=== PATIENT | female | born 1930 | race Caucasian/White ===

== ENCOUNTER 2016-04-08 09:34 | Outpatient (CLI) | payer MEDICARE, OTHER | END 2016-04-08 09:35 | disposition home or self-care (01) | DX: I10 Essential (primary) hypertension (principal); Z79.899 Other long term (current) drug therapy; N28.9 Disorder of kidney and ureter, unspecified; R73.01 Impaired fasting glucose; R53.83 Other fatigue; I48.91 Unspecified atrial fibrillation ==

== ENCOUNTER 2016-09-01 09:55 | Outpatient (CLI) | payer MEDICARE, OTHER ==
[2016-09-01 18:43] LABS: BILIRUBIN,URINE NEGATIVE (NEGATIVE)
[2016-09-01 19:04] LABS: BASOPHILS % (AUTO) 0.5 %; EOSINOPHILS # (AUTO) 0.1 10^3/uL (0.0-0.7); EOSINOPHILS % (AUTO) 0.9 %; HCT - HEMATOCRIT 38.6 % (37.0-47.0); HGB - HEMOGLOBIN 12.5 g/dL (12.0-16.0); LYMPHOCYTES # (AUTO) 2.2 10^3/uL (1.5-3.5); LYMPHOCYTES % (AUTO) 28.6 %; MEAN CORPUSCULAR HEMOGLOBIN 27.5 pg (27.0-31.0); MEAN CORPUSCULAR HGB CONC 32.4 g/dL (32.0-36.0); MEAN PLATELET VOLUME 9.3 fL (7.9-10.8); MONOCYTES # (AUTO) 0.6 10^3/uL (0.0-1.0); MONOCYTES % (AUTO) 7.9 %; NEUTROPHILS # (AUTO) 4.8 10^3/uL (1.5-6.6); NEUTROPHILS % (AUTO) 62.1 %; RED BLOOD COUNT 4.55 10^6/uL (4.20-5.40); RED CELL DISTRIBUTION WIDTH 15.6 % (12.0-15.0); UNCORRECTED WHITE BLOOD COUNT 7.8 x10^3/uL; WHITE BLOOD COUNT 7.8 x10^3/uL (4.8-10.8)
[2016-09-01 19:13] LABS: ALBUMIN/GLOBULIN RATIO 1.3 (1.0-2.2); BILIRUBIN,TOTAL 0.5 mg/dL (0.2-1.0); CALCIUM 9.7 mg/dL (8.5-10.3); CREATININE 1.1 mg/dL (0.4-1.0); POTASSIUM 4.6 mmol/L (3.5-5.0); TOTAL PROTEIN 7.3 g/dL (6.7-8.2)
[2016-09-01 19:35] LABS: UR CULTURE IF IND INDICATED
[2016-09-01 20:00] LABS: HEMOGLOBIN A1C 0.49 g/dL
== END 2016-09-01 09:56 | disposition home or self-care (01) ==
LOC: LAB.F 09:55
PROVIDERS: ATTEND Physician Assistant Medical
DX: Z79.899 Other long term (current) drug therapy (principal); N28.9 Disorder of kidney and ureter, unspecified; R73.01 Impaired fasting glucose
CPT/HCPCS: 36415; 80053; 81001; 83036; 85025; 87086

== ENCOUNTER 2016-09-10 10:21 | Outpatient (CLI) | payer MEDICARE, OTHER ==
--- NOTE | 2016-09-10 12:24 | XRAY Report ---
THREE-VIEW RIGHT KNEE: 09/10/2016 CLINICAL INDICATION: Pain. FINDINGS: AP, lateral, sunrise views of the right knee demonstrate moderate osteoarthritis. No effu ashlee is present. There is no evidence of acute fracture. IMPRESSION: MODERATE OSTEOARTHRITIS. JOB #: [id number] EXT JOB #:[id number]
== END 2016-09-10 10:22 | disposition home or self-care (01) ==
LOC: DI 10:21
PROVIDERS: ATTEND Physician Assistant Medical
DX: M17.11 Unilateral primary osteoarthritis, right knee (principal)

== ENCOUNTER 2016-11-25 13:28 | Outpatient (CLI) | payer MEDICARE, OTHER ==
--- NOTE | 2016-11-26 16:45 | Mammography Report ---
DIGITAL SCREENING MAMMOGRAM: 11/25/2016 CLINICAL INDICATION: An 86-year-old with family history of breast cancer, history of benign left armond st biopsy, for screening. COMPARISON: 10/2015, 09/2014, 08/2013, 06/2012, 05/2011, 04/2010, 04/2009. TECHNIQUE: Routine CC and MLO projections were obtained of the breasts. FINDINGS: The breasts demonstrate scattered fibroglandular densities bilaterally. Coarse and punctat e, typically benign calcifications are present. No suspicious masses, clustered microcalcifications, or regions of architectural distortion are identified. IMPRESSION: BENIGN FINDINGS. RECOMMENDATION: ROUTINE ANNUAL SCREENING UNLESS OTHERWISE CLINICALLY INDICATED. BIRADS CATEGORY 2-BENIGN FINDINGS. STANDARD QUALIFYING STATEMENTS 1. This examination was reviewed with the aid of Computer-Aided Detection (CAD). 2. A negative or benign imaging report should not delay biopsy if clinically suspicious findings are present. Consider surgical consultation if warranted. More than 5% of cancers are not identified by i maging. 3. Dense breasts may obscure an underlying neoplasm. JOB #: [id number] EXT JOB #:[id number]
== END 2016-11-25 13:29 | disposition home or self-care (01) ==
LOC: DI 13:28
PROVIDERS: ATTEND Physician Assistant Medical
DX: Z12.31 Encounter for screening mammogram for malignant neoplasm of breast (principal); Z80.3 Family history of malignant neoplasm of breast
CPT/HCPCS: 77067

== ENCOUNTER 2017-02-02 11:13 | Outpatient (CLI) | payer MEDICARE, OTHER ==
[2017-02-02 18:36] LABS: BASOPHILS % (AUTO) 0.4 %; EOSINOPHILS # (AUTO) 0.1 10^3/uL (0.0-0.7); EOSINOPHILS % (AUTO) 1.6 %; HCT - HEMATOCRIT 36.1 % (37.0-47.0); HGB - HEMOGLOBIN 11.6 g/dL (12.0-16.0); LYMPHOCYTES # (AUTO) 2.3 10^3/uL (1.5-3.5); LYMPHOCYTES % (AUTO) 30.8 %; MEAN CORPUSCULAR HEMOGLOBIN 27.5 pg (27.0-31.0); MEAN CORPUSCULAR HGB CONC 32.3 g/dL (32.0-36.0); MEAN CORPUSCULAR VOLUME 85.2 fL (81.0-99.0); MEAN PLATELET VOLUME 10.2 fL (7.9-10.8); MONOCYTES # (AUTO) 0.6 10^3/uL (0.0-1.0); MONOCYTES % (AUTO) 7.9 %; NEUTROPHILS # (AUTO) 4.4 10^3/uL (1.5-6.6); NEUTROPHILS % (AUTO) 59.3 %; RED BLOOD COUNT 4.24 10^6/uL (4.20-5.40); RED CELL DISTRIBUTION WIDTH 15.6 % (12.0-15.0); UNCORRECTED WHITE BLOOD COUNT 7.5 x10^3/uL; WHITE BLOOD COUNT 7.5 x10^3/uL (4.8-10.8)
[2017-02-02 18:53] LABS: HEMOGLOBIN A1C 0.46 g/dL
[2017-02-02 19:00] LABS: ALBUMIN/GLOBULIN RATIO 1.3 (1.0-2.2); BILIRUBIN,TOTAL 0.6 mg/dL (0.2-1.0); BUN - BLOOD UREA NITROGEN 30 mg/dL (6-20); CALCIUM 9.6 mg/dL (8.5-10.3); CARBON DIOXIDE - CO2 24 mmol/L (21-32); CHLORIDE 105 mmol/L (101-111); CHOL/HDL RATIO 2.7 (<4.4); CHOLESTEROL 162 mg/dL; CREATININE 1.1 mg/dL (0.4-1.0); GFR - MDRD 47 (>89); GLUCOSE 86 mg/dL (70-100); HDL CHOLESTEROL 61 mg/dL; LDL/HDL RATIO 1.3 (<4.4); POTASSIUM 4.3 mmol/L (3.5-5.0); SODIUM 137 mmol/L (135-145); TOTAL PROTEIN 7.2 g/dL (6.7-8.2); TRIGLYCERIDES 118 mg/dL; VLDL CHOLESTEROL 24 mg/dL
== END 2017-02-02 11:14 | disposition home or self-care (01) ==
LOC: LAB.F 11:13
PROVIDERS: ATTEND Physician Assistant Medical
DX: E78.5 Hyperlipidemia, unspecified (principal); N28.9 Disorder of kidney and ureter, unspecified; Z79.01 Long term (current) use of anticoagulants; R73.01 Impaired fasting glucose; R53.83 Other fatigue
CPT/HCPCS: 36415; 80053; 80061; 83036; 84443; 85025

== ENCOUNTER 2017-06-03 09:08 | Outpatient (CLI) | payer MEDICARE, OTHER ==
[2017-06-03 17:40] LABS: BASOPHILS % (AUTO) 0.6 %; EOSINOPHILS # (AUTO) 0.1 10^3/uL (0.0-0.7); EOSINOPHILS % (AUTO) 2.1 %; HGB - HEMOGLOBIN 11.4 g/dL (12.0-16.0); LYMPHOCYTES # (AUTO) 2.1 10^3/uL (1.5-3.5); MEAN CORPUSCULAR HEMOGLOBIN 27.3 pg (27.0-31.0); MEAN CORPUSCULAR VOLUME 82.9 fL (81.0-99.0); MEAN PLATELET VOLUME 9.7 fL (7.9-10.8); MONOCYTES # (AUTO) 0.6 10^3/uL (0.0-1.0); MONOCYTES % (AUTO) 9.2 %; NEUTROPHILS # (AUTO) 3.3 10^3/uL (1.5-6.6); NEUTROPHILS % (AUTO) 54.1 %; PLT - PLATELET COUNT 178 10^3/uL (130-450); RED BLOOD COUNT 4.15 10^6/uL (4.20-5.40); RED CELL DISTRIBUTION WIDTH 15.8 % (12.0-15.0); WHITE BLOOD COUNT 6.2 x10^3/uL (4.8-10.8)
[2017-06-03 17:47] LABS: HB2 TOTAL 12.3 g/dL; HEMOGLOBIN A1C 0.49 g/dL; HEMOGLOBIN A1C % 5.8 % (4.6-6.2)
[2017-06-03 18:00] LABS: ALBUMIN/GLOBULIN RATIO 1.3 (1.0-2.2); BILIRUBIN,TOTAL 0.4 mg/dL (0.2-1.0); CALCIUM 9.3 mg/dL (8.5-10.3); TOTAL PROTEIN 7.1 g/dL (6.7-8.2)
== END 2017-06-03 09:09 | disposition home or self-care (01) ==
LOC: LAB.F 09:08
PROVIDERS: ATTEND Physician Assistant Medical
DX: N28.9 Disorder of kidney and ureter, unspecified (principal); R73.01 Impaired fasting glucose; D64.9 Anemia, unspecified; Z79.01 Long term (current) use of anticoagulants
CPT/HCPCS: 36415; 80053; 83036; 85025

== ENCOUNTER 2017-07-08 08:00 | Outpatient (CLI) | payer MEDICARE, OTHER | END 2017-07-08 23:59 | disposition home or self-care (01) | LOC: LAB.R 08:00 | PROVIDERS: ATTEND Nurse Practitioner Family | DX: D64.9 Anemia, unspecified (principal) | CPT/HCPCS: 82270 ==

== ENCOUNTER 2017-10-08 10:28 | Outpatient (CLI) | payer MEDICARE, OTHER ==
[2017-10-08 17:24] LABS: BASOPHILS % (AUTO) 0.6 %; EOSINOPHILS # (AUTO) 0.1 10^3/uL (0.0-0.7); EOSINOPHILS % (AUTO) 1.3 %; HGB - HEMOGLOBIN 11.9 g/dL (12.0-16.0); LYMPHOCYTES # (AUTO) 2.1 10^3/uL (1.5-3.5); LYMPHOCYTES % (AUTO) 33.6 %; MEAN CORPUSCULAR HEMOGLOBIN 27.8 pg (27.0-31.0); MEAN CORPUSCULAR HGB CONC 32.8 g/dL (32.0-36.0); MEAN CORPUSCULAR VOLUME 84.7 fL (81.0-99.0); MEAN PLATELET VOLUME 10.4 fL (7.9-10.8); MONOCYTES # (AUTO) 0.5 10^3/uL (0.0-1.0); MONOCYTES % (AUTO) 8.8 %; NEUTROPHILS # (AUTO) 3.4 10^3/uL (1.5-6.6); NEUTROPHILS % (AUTO) 55.7 %; PLT - PLATELET COUNT 178 10^3/uL (130-450); RED BLOOD COUNT 4.28 10^6/uL (4.20-5.40); RED CELL DISTRIBUTION WIDTH 16.5 % (12.0-15.0); WHITE BLOOD COUNT 6.2 x10^3/uL (4.8-10.8)
== END 2017-10-08 10:29 | disposition home or self-care (01) ==
LOC: LAB.F 10:28
PROVIDERS: ATTEND Nurse Practitioner Family
DX: D64.9 Anemia, unspecified (principal)
CPT/HCPCS: 36415; 85025

== ENCOUNTER 2017-10-20 10:05 | Outpatient (CLI) | payer MEDICARE, OTHER ==
[2017-10-20 18:11] LABS: ALBUMIN 3.9 g/dL (3.2-5.5); ALBUMIN/GLOBULIN RATIO 1.3 (1.0-2.2); BILIRUBIN,TOTAL 0.9 mg/dL (0.2-1.0); CALCIUM 9.5 mg/dL (8.5-10.3); CREATININE 1.1 mg/dL (0.4-1.0); TOTAL PROTEIN 6.8 g/dL (6.7-8.2)
== END 2017-10-20 10:06 | disposition home or self-care (01) ==
LOC: LAB.F 10:05
PROVIDERS: ATTEND Physician Assistant Medical
DX: I12.9 Hypertensive chronic kidney disease with stage 1 through stage 4 chronic kidney disease, or unspecified chronic kidney disease (principal); N18.9 Chronic kidney disease, unspecified
CPT/HCPCS: 36415; 80053

== ENCOUNTER 2018-01-14 08:34 | Outpatient (CLI) | payer MEDICARE, OTHER ==
[2018-01-14 12:15] LABS: ALBUMIN 4.3 g/dL (3.2-5.5); ALBUMIN/GLOBULIN RATIO 1.4 (1.0-2.2); BILIRUBIN,TOTAL 0.7 mg/dL (0.2-1.0); CALCIUM 9.7 mg/dL (8.5-10.3); CREATININE 1.1 mg/dL (0.4-1.0); TOTAL PROTEIN 7.3 g/dL (6.7-8.2)
== END 2018-01-14 08:35 | disposition home or self-care (01) ==
LOC: LAB.F 08:34
PROVIDERS: ATTEND Physician Assistant Medical
DX: I12.9 Hypertensive chronic kidney disease with stage 1 through stage 4 chronic kidney disease, or unspecified chronic kidney disease (principal); N18.9 Chronic kidney disease, unspecified
CPT/HCPCS: 36415; 80053

== ENCOUNTER 2018-06-02 09:46 | Outpatient (CLI) | payer MEDICARE, OTHER ==
[2018-06-02 18:05] LABS: ALBUMIN 4.2 g/dL (3.2-5.5); ALBUMIN/GLOBULIN RATIO 1.4 (1.0-2.2); BILIRUBIN,TOTAL 0.5 mg/dL (0.2-1.0); CALCIUM 9.6 mg/dL (8.5-10.3); CREATININE 1.1 mg/dL (0.4-1.0); TOTAL PROTEIN 7.2 g/dL (6.7-8.2)
== END 2018-06-02 09:47 | disposition home or self-care (01) ==
LOC: LAB.F 09:46
PROVIDERS: ATTEND Physician Assistant Medical
DX: I12.9 Hypertensive chronic kidney disease with stage 1 through stage 4 chronic kidney disease, or unspecified chronic kidney disease (principal); N18.9 Chronic kidney disease, unspecified
CPT/HCPCS: 36415; 80053

== ENCOUNTER 2019-01-04 09:41 | Outpatient (CLI) | payer MEDICARE, OTHER ==
[2019-01-04 17:23] LABS: BASOPHILS % (AUTO) 0.5 %; EOSINOPHILS # (AUTO) 0.1 10^3/uL (0.0-0.7); EOSINOPHILS % (AUTO) 1.6 %; HGB - HEMOGLOBIN 11.4 g/dL (12.0-16.0); LYMPHOCYTES # (AUTO) 2.1 10^3/uL (1.5-3.5); LYMPHOCYTES % (AUTO) 28.2 %; MEAN CORPUSCULAR HEMOGLOBIN 26.9 pg (27.0-31.0); MEAN CORPUSCULAR HGB CONC 30.2 g/dL (32.0-36.0); MEAN CORPUSCULAR VOLUME 88.9 fL (81.0-99.0); MEAN PLATELET VOLUME 12.9 fL (7.9-10.8); MONOCYTES # (AUTO) 0.7 10^3/uL (0.0-1.0); MONOCYTES % (AUTO) 8.8 %; NEUTROPHILS # (AUTO) 4.5 10^3/uL (1.5-6.6); NEUTROPHILS % (AUTO) 60.6 %; PLT - PLATELET COUNT 183 10^3/uL (130-450); RED BLOOD COUNT 4.24 10^6/uL (4.20-5.40); RED CELL DISTRIBUTION WIDTH 14.9 % (12.0-15.0); WHITE BLOOD COUNT 7.4 x10^3/uL (4.8-10.8)
[2019-01-04 17:53] LABS: HB2 TOTAL 11.5 g/dL; HEMOGLOBIN A1C 0.54 g/dL; HEMOGLOBIN A1C % 6.4 % (4.6-6.2)
[2019-01-04 17:58] LABS: ALBUMIN 4.1 g/dL (3.2-5.5); ALBUMIN/GLOBULIN RATIO 1.3 (1.0-2.2); ALKALINE PHOSPHATASE 69 IU/L (42-121); ALT ALANINE AMINOTRANSFERASE 16 IU/L (10-60); AST ASPARTATE AMINOTRANSFERASE 16 IU/L (10-42); BILIRUBIN,TOTAL 0.4 mg/dL (0.2-1.0); BUN - BLOOD UREA NITROGEN 26 mg/dL (6-20); CALCIUM 9.4 mg/dL (8.5-10.3); CARBON DIOXIDE - CO2 27 mmol/L (21-32); CHLORIDE 106 mmol/L (101-111); CHOL/HDL RATIO 2.4 (<4.4); CHOLESTEROL 168 mg/dL; CREATININE 1.1 mg/dL (0.4-1.0); GFR - MDRD 47 (>89); GLUCOSE 98 mg/dL (70-100); HDL CHOLESTEROL 69 mg/dL; LDL CHOLESTEROL,CALCULATED 81 mg/dL; LDL/HDL RATIO 1.2 (<4.4); SODIUM 142 mmol/L (135-145); TOTAL PROTEIN 7.3 g/dL (6.7-8.2); VLDL CHOLESTEROL 18 mg/dL
== END 2019-01-04 09:42 | disposition home or self-care (01) ==
LOC: LAB.S 09:41
PROVIDERS: ATTEND Physician Assistant Medical
DX: I12.9 Hypertensive chronic kidney disease with stage 1 through stage 4 chronic kidney disease, or unspecified chronic kidney disease (principal); N18.9 Chronic kidney disease, unspecified; E78.5 Hyperlipidemia, unspecified; R73.01 Impaired fasting glucose; D64.9 Anemia, unspecified
CPT/HCPCS: 36415; 80053; 80061; 83036; 83721; 85025

== ENCOUNTER 2019-03-08 11:21 | Outpatient (CLI) | payer MEDICARE, OTHER | END 2019-03-08 11:22 | disposition critical access hospital (66) | LOC: EMS 11:21 | PROVIDERS: ATTEND Surgery | DX: R42 Dizziness and giddiness (principal) | CPT/HCPCS: A0425; A0429 ==

== ENCOUNTER 2019-03-08 11:46 | Emergency (ER) | payer MEDICARE, OTHER ==
[2019-03-08 12:28] LABS: BASOPHILS # (AUTO) 0.1 10^3/uL (0.0-0.1); BASOPHILS % (AUTO) 0.7 %; EOSINOPHILS # (AUTO) 0.2 10^3/uL (0.0-0.7); EOSINOPHILS % (AUTO) 2.1 %; HGB - HEMOGLOBIN 11.7 g/dL (12.0-16.0); LYMPHOCYTES # (AUTO) 0.8 10^3/uL (1.5-3.5); LYMPHOCYTES % (AUTO) 11.1 %; MEAN CORPUSCULAR HEMOGLOBIN 27.4 pg (27.0-31.0); MEAN CORPUSCULAR HGB CONC 32.1 g/dL (32.0-36.0); MEAN CORPUSCULAR VOLUME 85.2 fL (81.0-99.0); MEAN PLATELET VOLUME 9.7 fL (7.9-10.8); MONOCYTES # (AUTO) 0.6 10^3/uL (0.0-1.0); MONOCYTES % (AUTO) 7.9 %; NEUTROPHILS # (AUTO) 5.9 10^3/uL (1.5-6.6); NEUTROPHILS % (AUTO) 77.7 %; PLT - PLATELET COUNT 170 10^3/uL (130-450); RED BLOOD COUNT 4.27 10^6/uL (4.20-5.40); RED CELL DISTRIBUTION WIDTH 14.7 % (12.0-15.0); WHITE BLOOD COUNT 7.6 x10^3/uL (4.8-10.8)
[2019-03-08 12:43] LABS: ALBUMIN 3.8 g/dL (3.2-5.5); ALBUMIN/GLOBULIN RATIO 1.2 (1.0-2.2); BILIRUBIN,TOTAL 0.5 mg/dL (0.2-1.0); CALCIUM 9.1 mg/dL (8.5-10.3); TOTAL PROTEIN 7.1 g/dL (6.7-8.2)
[2019-03-08 12:48] LABS: BILIRUBIN,URINE NEGATIVE (NEGATIVE); GLUCOSE, URINE (UA) NEGATIVE (NEGATIVE); KETONES,URINE (UA) TRACE mg/dL (NEGATIVE); LEUKOCYTE ESTERASE, URINE TRACE (NEGATIVE); NITRITE,URINE NEGATIVE (NEGATIVE); OCCULT BLOOD,URINE SMALL (NEGATIVE); PH,URINE 6.5 PH (5.0-7.5); PROTEIN,URINE NEGATIVE (NEGATIVE); UROBILINOGEN,URINE 0.2 (NORMAL) E.U./dL (NORMAL)
[2019-03-08] MEDS ORDERED: SODIUM CHLORIDE 0.9% 1,000 ML IV ONE (12:49)
--- NOTE | 2019-03-08 12:52 | ED Physician Documentation ---
PD HPI FOCAL NEURO - Stated complaint Stated Complaint: DIZZY - Chief complaint Chief Complaint: Neuro - History obtained from History obtained from: Patient - History of Present Illness Timing - onset: Other (88-year-old woman who has had laryngitis for last week. She saw her doctor and got put on Mucinex and a steroid nasal spray, continues to have that. Today she feels lightheaded when she changes position, especially when she goes upright. There is no associated chest pain, trouble breathing, pedal edema, calf pain, dark or tarry stools. She has a history of chronic A. fib and is on Xarelto and metoprolol for same. No recent medication changes.) Review of Systems Constitutional: denies: Fever, Chills, Myalgias Cardiac: denies: Chest pain / pressure, Palpitations Respiratory: denies: Dyspnea, Cough GI: denies: Hematemesis, Bloody / black stool : denies: Dysuria Skin: denies: Rash Musculoskeletal: denies: Neck pain PD PAST MEDICAL HISTORY - Present Medications Home Medications: Ambulatory Orders Medication Instructions Recorded Confirmed Cephalexin [Keflex] 500 mg PO Q6H #20 capsule 03/08/19 - Allergies Allergies/Adverse Reactions: Allergies Allergy/AdvReac Type Severity Reaction Status Date / Time No Known Drug Allergies Allergy Verified 03/08/19 12:01 PD ED PE NORMAL - Vitals Vital signs reviewed: Yes - General General: Alert and oriented X 3, No acute distress, Well developed/nourished - HEENT HEENT: Atraumatic, PERRL, EOMI, Moist mucous membranes - Neck Neck: Supple, no meningeal sign, No bony TTP, No adenopathy - Cardiac Cardiac: No murmur, Other (irreg irreg) - Respiratory Respiratory: No respiratory distress, Clear bilaterally - Abdomen Abdomen: Normal bowel sounds, Non tender - Female Female : Deferred - Rectal Rectal: Deferred Results - Vitals Vitals: Vital Signs - 24 hr 03/08/19 03/08/19 11:50 12:25 Temperature 35.9 C L Heart Rate 78 75 Respiratory 18 18 Rate Blood Pressure 108/69 128/63 O2 Saturation 100 97 Oxygen O2 Source Room air - EKG (time done) 1154 Rate: Rate (enter#) (73) Rhythm: Atrial fibrillation [place]: Normal QRS: Normal Ischemia: Normal ST segments Computer interpretation: Agree with computer - Labs Labs: Laboratory Tests 03/08/19 03/08/19 03/08/19 12:22 12:22 12:43 WBC 7.6 RBC 4.27 Hgb 11.7 L Hct 36.4 L MCV 85.2 MCH 27.4 MCHC 32.1 RDW 14.7 Plt Count 170 MPV 9.7 Neut # (Auto) 5.9 Lymph # (Auto) 0.8 L [place] # (Auto) 0.6 Eos # (Auto) 0.2 Baso # (Auto) 0.1 Absolute Nucleated RBC 0.00 Nucleated RBC % 0.0 Sodium 136 Potassium 4.1 Chloride 101 Carbon Dioxide 24 Anion Gap 11.0 BUN 24 H Creatinine 1.0 Estimated GFR (MDRD) 52 L Glucose 113 H Calcium 9.1 Total Bilirubin 0.5 AST 23 ALT 14 Alkaline Phosphatase 84 Total Protein 7.1 Albumin 3.8 Globulin 3.3 Albumin/Globulin Ratio 1.2 Lipase 42 Urine Color YELLOW Urine Clarity CLEAR Urine pH 6.5 Ur Specific [place] 1.015 Urine Protein NEGATIVE Urine Glucose (UA) NEGATIVE Urine Ketones TRACE Urine Occult Blood SMALL H Urine Nitrite NEGATIVE Urine Bilirubin NEGATIVE Urine Urobilinogen 0.2 (NORMAL) Ur Leukocyte Esterase TRACE H Urine RBC 0-5 Urine WBC 0-3 Ur Squamous Epith Cells RARE Squamous Urine Bacteria None Seen Ur Microscopic Review INDICATED Urine Culture Comments INDICATED PD MEDICAL DECISION MAKING - ED course ED course: This is a linda 88-year-old woman who presents with positional presyncope in the setting of what apparently is nonbacterial laryngitis. She was feeling much better after IV fluids. She is anemic, but no more anemic than normal. No evidence of bleeding. There is evidence of a mild urinary tract infection as well which is treated pending culture. Departure - Departure Disposition: Home, Self Care Clinical Impression: Orthostatic dizziness Urinary tract infection Qualifiers: Urinary tract infection type: acute cystitis Hematuria presence: without hematuria Qualified Code(s): N30.00 - Acute cystitis without hematuria Condition: Good Record reviewed to determine appropriate education?: Yes Instructions: ED UTI Cystitis Female, ED Dizziness UKO Prescriptions: Cephalexin [Keflex] 500 mg PO Q6H #20 capsule Comments: Call your doctor to arrange a follow-up appointment, make the next available appointment. In the interim, return anytime if worse or if new symptoms develop. We will culture your urine, the results should be done in 48-72 hours. If an antibiotic change is necessary we will call you. Return if worse in the meantime, especially if you develop increasing flank pain, fevers, or cannot keep down the medication.
[2019-03-08 13:03] LABS: CLARITY,URINE CLEAR (CLEAR)
[2019-03-08 13:10] LABS: BACTERIA,URINE None Seen /HPF (None Seen); RBC,URINE 0-5 /HPF (0-5); SQUAMOUS EPITHELIAL CELL,UR RARE Squamous (<= Few)
[2019-03-08] MEDS ORDERED: cephALEXin 250 MG CAPSULE PO STA (13:59)
[2019-03-08 14:12] VITALS: BP 141/78
== END 2019-03-08 14:47 | disposition home or self-care (01) ==
LOC: EDUNIT# → ED 11:46
DX: I95.1 Orthostatic hypotension (principal); R42 Dizziness and giddiness; N30.00 Acute cystitis without hematuria; J04.0 Acute laryngitis; D64.9 Anemia, unspecified; I48.20 Chronic atrial fibrillation, unspecified; Z79.01 Long term (current) use of anticoagulants
CPT/HCPCS: 36415; 80053; 81001; 83690; 85025; 87086; 93005; 96360; 99283; 99284; A9270; 81003

== ENCOUNTER 2019-03-14 12:46 | Emergency (ER) | payer MEDICARE, OTHER ==
[2019-03-14 13:29] LABS: BASOPHILS # (AUTO) 0.1 10^3/uL (0.0-0.1); BASOPHILS % (AUTO) 0.5 %; EOSINOPHILS # (AUTO) 0.1 10^3/uL (0.0-0.7); EOSINOPHILS % (AUTO) 0.8 %; HGB - HEMOGLOBIN 12.4 g/dL (12.0-16.0); LYMPHOCYTES # (AUTO) 1.5 10^3/uL (1.5-3.5); LYMPHOCYTES % (AUTO) 15.1 %; MEAN CORPUSCULAR HEMOGLOBIN 27.3 pg (27.0-31.0); MEAN CORPUSCULAR HGB CONC 31.8 g/dL (32.0-36.0); MEAN CORPUSCULAR VOLUME 85.7 fL (81.0-99.0); MEAN PLATELET VOLUME 9.4 fL (7.9-10.8); MONOCYTES # (AUTO) 0.8 10^3/uL (0.0-1.0); MONOCYTES % (AUTO) 8.1 %; NEUTROPHILS # (AUTO) 7.2 10^3/uL (1.5-6.6); NEUTROPHILS % (AUTO) 75.1 %; PLT - PLATELET COUNT 184 10^3/uL (130-450); RED BLOOD COUNT 4.55 10^6/uL (4.20-5.40); RED CELL DISTRIBUTION WIDTH 14.9 % (12.0-15.0); WHITE BLOOD COUNT 9.6 x10^3/uL (4.8-10.8)
[2019-03-14 13:46] LABS: ALBUMIN 4.1 g/dL (3.2-5.5); ALBUMIN/GLOBULIN RATIO 1.2 (1.0-2.2); BILIRUBIN,TOTAL 0.5 mg/dL (0.2-1.0); CALCIUM 9.5 mg/dL (8.5-10.3); CREATININE 1.1 mg/dL (0.4-1.0); MAGNESIUM 2.3 mg/dL (1.7-2.8); PHOSPHORUS 3.7 mg/dL (2.5-4.6); TOTAL PROTEIN 7.5 g/dL (6.7-8.2)
[2019-03-14] MEDS ORDERED: SODIUM CHLORIDE 0.9% 1,000 ML IV ONE (14:25)
--- NOTE | 2019-03-14 14:41 | ED Physician Documentation ---
History of Present Illness - Stated complaint Stated Complaint: WEAKNESS - Chief complaint Chief Complaint: General - History obtained from History obtained from: Patient - History of Present Illness Timing: How many weeks ago (3) Pain level max: 0 Pain level now: 0 - Additonal information Additional information: 88-year-old female states that she has been feeling weak for the past 3 weeks. Worse with movement and better with rest. No focal neurological deficits. No focal weakness, just an overall feeling of weakness. She states that she has also had laryngitis for the past few weeks. No fevers. No cough. No chest pain. No nausea or vomiting. No diarrhea Review of Systems Ten Systems: 10 systems reviewed and negative Constitutional: denies: Fever, Chills Eyes: denies: Decreased vision, Photophobia Ears: denies: Ear pain Nose: denies: Rhinorrhea / runny nose, Congestion Cardiac: denies: Chest pain / pressure Respiratory: denies: Cough GI: denies: Nausea, Vomiting, Diarrhea : denies: Dysuria Skin: denies: Rash Musculoskeletal: denies: Neck pain, Back pain, Extremity pain Neurologic: denies: Focal weakness, Numbness, Confused, Altered mental status, Headache PD PAST MEDICAL HISTORY - Past Medical History Past Medical History: Yes Cardiovascular: Hypertension, Atrial fibrillation - Present Medications Home Medications: Ambulatory Orders Medication Instructions Recorded Confirmed Cephalexin [Keflex] 500 mg PO Q6H #20 capsule 03/08/19 - Allergies Allergies/Adverse Reactions: Allergies Allergy/AdvReac Type Severity Reaction Status Date / Time No Known Drug Allergies Allergy Verified 03/14/19 12:54 - Living Situation Living Situation: reports: With family - Social History Does the pt smoke?: No Does the pt have substance abuse?: No - Family History Family history: reports: Non contributory PD ED PE NORMAL - Vitals Vital signs reviewed: Yes - General General: Alert and oriented X 3, No acute distress, Well developed/nourished - HEENT HEENT: PERRL, Ears normal, Moist mucous membranes, Pharynx benign - Neck Neck: Supple, no meningeal sign - Cardiac Cardiac: Strong equal pulses, Other (Irregular) - Respiratory Respiratory: No respiratory distress, Clear bilaterally - Abdomen Abdomen: Soft, Non tender, Non distended - Derm Derm: Warm and dry, No rash - Extremities Extremities: No edema - Neuro Neuro: Alert and oriented X 3, machine feeder floorperson 2-12 intact, No motor deficit, No sensory deficit, Normal speech Eye Opening: Spontaneous Motor: Obeys Commands Verbal: Oriented GCS Score: 15 - Psych Psych: Normal mood, Normal affect - Free text exam Free text exam: NIH stroke scale of 0. Normal gait. Results - Vitals Vitals: Vital Signs - 24 hr 03/14/19 03/14/19 03/14/19 12:54 14:48 17:26 Temperature 36.5 C Heart Rate 86 75 76 Respiratory 16 18 16 Rate Blood Pressure 114/65 134/65 H 134/80 H O2 Saturation 98 96 95 Oxygen O2 Source Room air - Labs Labs: Laboratory Tests 03/14/19 03/14/19 03/14/19 13:23 13:23 16:15 WBC 9.6 RBC 4.55 Hgb 12.4 Hct 39.0 MCV 85.7 MCH 27.3 MCHC 31.8 L RDW 14.9 Plt Count 184 MPV 9.4 Neut # (Auto) 7.2 H Lymph # (Auto) 1.5 [place] # (Auto) 0.8 Eos # (Auto) 0.1 Baso # (Auto) 0.1 Absolute Nucleated RBC 0.00 Nucleated RBC % 0.0 Sodium 137 Potassium 4.1 Chloride 102 Carbon Dioxide 24 Anion Gap 11.0 BUN 22 H Creatinine 1.1 H Estimated GFR (MDRD) 47 L Glucose 103 H Calcium 9.5 Phosphorus 3.7 Magnesium 2.3 Total Bilirubin 0.5 AST 28 ALT 19 Alkaline Phosphatase 91 Total Protein 7.5 Albumin 4.1 Globulin 3.4 Albumin/Globulin Ratio 1.2 Lipase 47 Urine Color YELLOW Urine Clarity CLEAR Urine pH 7.5 Ur Specific [place] 1.010 Urine Protein NEGATIVE Urine Glucose (UA) NEGATIVE Urine Ketones NEGATIVE Urine Occult Blood SMALL H Urine Nitrite NEGATIVE Urine Bilirubin NEGATIVE Urine Urobilinogen 0.2 (NORMAL) Ur Leukocyte Esterase NEGATIVE Urine RBC 6-10 H Urine WBC 0-3 Ur Squamous Epith Cells RARE Squamous Urine Bacteria None Seen Ur Microscopic Review INDICATED Urine Culture Comments NOT INDICATED PD MEDICAL DECISION MAKING - ED course Complexity details: reviewed old records, reviewed results, re-evaluated patient, considered differential, d/w patient ED course: Patient feels better after IV fluids. No significant lab abnormalities. We will have her follow-up with her doctor for further care. No evidence of stroke. No neurological deficits. Ambulating well here. Patient counseled regarding signs and symptoms for which I believe and urgent re-evaluation would be necessary. Patient with good understanding of and agreement to plan and is comfortable going home at this time This document was made in part using voice recognition software. While efforts are made to proofread this document, sound alike and grammatical errors may occur. Departure - Departure Disposition: 01 Home, Self Care Clinical Impression: Weakness Condition: Good Instructions: ED Weakness [facility]O Follow-Up: Shilpa Morales PA-C [Primary Care Provider] - Within 1 week Comments: The cause of your symptoms today is unclear. Follow-up with your doctor for further care. There are no significant laboratory abnormalities today.
[2019-03-14 16:42] LABS: BILIRUBIN,URINE NEGATIVE (NEGATIVE); GLUCOSE, URINE (UA) NEGATIVE (NEGATIVE); KETONES,URINE (UA) NEGATIVE (NEGATIVE); LEUKOCYTE ESTERASE, URINE NEGATIVE (NEGATIVE); NITRITE,URINE NEGATIVE (NEGATIVE); OCCULT BLOOD,URINE SMALL (NEGATIVE); PH,URINE 7.5 PH (5.0-7.5); PROTEIN,URINE NEGATIVE (NEGATIVE); UROBILINOGEN,URINE 0.2 (NORMAL) E.U./dL (NORMAL)
[2019-03-14 16:43] LABS: CLARITY,URINE CLEAR (CLEAR)
[2019-03-14 16:55] LABS: BACTERIA,URINE None Seen /HPF (None Seen); SQUAMOUS EPITHELIAL CELL,UR RARE Squamous (<= Few)
[2019-03-14 17:27] VITALS: BP 134/80
== END 2019-03-14 17:42 | disposition home or self-care (01) ==
LOC: ED 12:46
DX: R53.1 Weakness (principal); I10 Essential (primary) hypertension
CPT/HCPCS: 36415; 80053; 81001; 81003; 83690; 83735; 84100; 85025; 87086; 96360; 99284

== ENCOUNTER 2019-03-19 12:01 | Outpatient (CLI) | payer MEDICARE, OTHER ==
[2019-03-19 12:16] LABS: BASOPHILS # (AUTO) 0.1 10^3/uL (0.0-0.1); BASOPHILS % (AUTO) 0.5 %; EOSINOPHILS # (AUTO) 0.1 10^3/uL (0.0-0.7); EOSINOPHILS % (AUTO) 0.5 %; HGB - HEMOGLOBIN 11.7 g/dL (12.0-16.0); LYMPHOCYTES # (AUTO) 1.2 10^3/uL (1.5-3.5); LYMPHOCYTES % (AUTO) 9.7 %; MEAN CORPUSCULAR HEMOGLOBIN 27.5 pg (27.0-31.0); MEAN CORPUSCULAR HGB CONC 32.2 g/dL (32.0-36.0); MEAN CORPUSCULAR VOLUME 85.2 fL (81.0-99.0); MEAN PLATELET VOLUME 9.2 fL (7.9-10.8); NEUTROPHILS # (AUTO) 10.3 10^3/uL (1.5-6.6); NEUTROPHILS % (AUTO) 80.6 %; PLT - PLATELET COUNT 187 10^3/uL (130-450); RED BLOOD COUNT 4.26 10^6/uL (4.20-5.40); RED CELL DISTRIBUTION WIDTH 14.9 % (12.0-15.0); WHITE BLOOD COUNT 12.7 x10^3/uL (4.8-10.8)
[2019-03-19 12:28] LABS: ALBUMIN 3.9 g/dL (3.2-5.5); ALBUMIN/GLOBULIN RATIO 1.2 (1.0-2.2); BILIRUBIN,TOTAL 0.6 mg/dL (0.2-1.0); CALCIUM 9.3 mg/dL (8.5-10.3); CREATININE 1.5 mg/dL (0.4-1.0); TOTAL PROTEIN 7.1 g/dL (6.7-8.2)
== END 2019-03-19 12:02 | disposition home or self-care (01) ==
LOC: LAB 12:01
PROVIDERS: ATTEND Nurse Practitioner
DX: R53.83 Other fatigue (principal); I12.9 Hypertensive chronic kidney disease with stage 1 through stage 4 chronic kidney disease, or unspecified chronic kidney disease; Z79.01 Long term (current) use of anticoagulants; D64.9 Anemia, unspecified; N18.9 Chronic kidney disease, unspecified; J06.9 Acute upper respiratory infection, unspecified; N39.0 Urinary tract infection, site not specified
CPT/HCPCS: 36415; 80053; 85025; 87040

== ENCOUNTER 2019-03-25 19:52 | Outpatient (CLI) | payer MEDICARE, OTHER | END 2019-03-25 19:53 | disposition critical access hospital (66) | LOC: EMS 19:52 | PROVIDERS: ATTEND Surgery | DX: R53.1 Weakness (principal); R29.810 Facial weakness; R47.81 Slurred speech | CPT/HCPCS: A0425; A0429 ==

== ENCOUNTER 2019-03-25 20:10 | Inpatient (IN) | payer MEDICARE, OTHER ==
--- NOTE | 2019-03-25 20:18 | ED Physician Documentation ---
PD HPI FOCAL NEURO - Stated complaint Stated Complaint: CVA - History obtained from History obtained from: Patient, Family, EMS - History of Present Illness Timing - onset: Unknown (see below for approximations of timeframes) Timing - details: Abrupt onset Time of symptom onset unknown: Time of onset unknown (see below for approximations) Severity of deficit: Moderate Weakness: Face, Arm, Leg, Left Associated symptoms: Fall. No: Headache, Head injury, Chest pain Baseline status: positive: A&OX3, ambulatory, indep (Per son-in-law, has supporting rails and bars installed in house but otherwise ambulates and functions independently) Similar symptoms before: Has not had sx before Recently seen: Clinic (recently prescribed antibiotic for possible pneumonia) - Additional information Additional information: BIBA for left-sided weakness. last confident known normal was when son-in-law interacted with her approximately 2:30 PM today. he returned to her house 7 PM tonight and found her on the floor next to washing machine with left-sided weakness and slurred speech, and thus called 911. patient has difficulty providing timing of events; she says she fell to ground approximately 30 minutes [employer]HALATION [employer], although she describes a controlled descent to floor (due to weakness). she does not know what time this happened and unclear if this correlated with onset of weakness. Review of Systems Constitutional: reports: Reviewed and negative Eyes: reports: Reviewed and negative Ears: reports: Reviewed and negative Nose: reports: Reviewed and negative Throat: reports: Reviewed and negative Cardiac: reports: Reviewed and negative Respiratory: reports: Reviewed and negative GI: reports: Reviewed and negative : denies: Dysuria, Incontinent Skin: reports: Reviewed and negative Musculoskeletal: reports: Reviewed and negative Neurologic: reports: Focal weakness (left face > LUE> LLE), Difficulty speaking. denies: Numbness, Confused, Altered mental status, Headache, LOC PD PAST MEDICAL HISTORY - Past Medical History Cardiovascular: Hypertension, Atrial fibrillation - Past Surgical History Past Surgical History: No - Present Medications Home Medications: Ambulatory Orders Medication Instructions Recorded Confirmed Amlodipine Bes/Olmesartan Med 1 tab PO DAILY 03/25/19 03/25/19 [Amlodipine-Olmesartan 10-40 mg] Cefdinir 300 mg PO BID 03/25/19 03/26/19 Doxycycline Hyclate 100 mg PO BID 03/25/19 03/26/19 Metoprolol Tartrate 12.5 mg PO BID 03/25/19 03/26/19 Rivaroxaban [Xarelto] 15 mg PO DAILY 03/25/19 03/26/19 - Allergies Allergies/Adverse Reactions: Allergies Allergy/AdvReac Type Severity Reaction Status Date / Time No Known Drug Allergies Allergy Verified 03/25/19 20:13 - Social History Does the pt smoke?: No Smoking Status: Never smoker Does the pt drink ETOH?: No Does the pt have substance abuse?: No - Immunizations Immunizations: TDAP >10years/unknown PD ED PE NORMAL - Vitals Vital signs reviewed: Yes - General General: No acute distress, Well developed/nourished, Other (awake, alert, difficult to understand many answers due to dysarthria) - HEENT HEENT: PERRL, Moist mucous membranes - Neck Neck: Supple, no meningeal sign - Cardiac Cardiac: No murmur - Respiratory Respiratory: No respiratory distress, Clear bilaterally - Abdomen Abdomen: Soft, Non tender - Back Back: No spinal TTP - Derm Derm: Normal color - Extremities Extremities: No tenderness to palpate, No edema - Neuro Neuro: Alert and oriented X 3 Eye Opening: Spontaneous Motor: Obeys Commands Verbal: Oriented GCS Score: 15 PD ED PE EXPANDED - Cardiac Cardiac: Irregularly irregular - Neuro Neuro: Left face (weakness, ptosis), LUE (weakness), LLE (weakness), Dysarthria - GCS Eye Opening: Spontaneous Motor: Obeys Commands Verbal: Oriented Total: 15 NIHSS - Level of Consciousness Level of consciousness: (0) Alert, Keenly responsive LOC Questions: (0) Answers both Q's correct LOC Commands: (0) Performs both correctly - Gaze Best Gaze: (1) Partial gaze palsy - Visual Visual: (2) Complete Hemianopia - Facial Palsy Facial Palsy: (2) Partial paralysis - Motor Arms (both separate) Motor Arm (right): (0) No drift Motor Arm (left): (1) Drift - Motor Legs (both separate) Motor Leg (right): (0) No drift Motor Leg (left): (1) Drift - Limb Ataxia Limb Ataxia: (1) Present in 1 limb - Sensory Sensory: (0) Normal - Best Language Best Language: (0) No aphasia - Dysarthria Dysarthria: (1) [id number]-[id number] dysarthria - Extinction and Inattention (formally neg Extinction and inattention: (2) Profound kenyon-inattention or extinction to more than one modality - Total Score/Results Total Score/Result: 11 Results - Vitals Vitals: Oxygen O2 Source Room air - EKG (time done) No standard instances Rate: Rate (enter#) (108) Rhythm: Atrial fibrillation [place]: Normal QRS: Normal Ischemia: T wave inversion (III, aVF) - Labs Labs: Laboratory Tests 03/25/19 03/25/19 03/25/19 21:09 21:09 21:09 WBC 14.0 H RBC 4.65 Hgb 12.7 Hct 39.4 MCV 84.7 MCH 27.3 MCHC 32.2 RDW 15.0 Plt Count 210 MPV 9.6 Neut # (Auto) 12.1 H Lymph # (Auto) 0.9 L [place] # (Auto) 0.7 Eos # (Auto) 0.0 Baso # (Auto) 0.1 Absolute Nucleated RBC 0.00 Nucleated RBC % 0.0 PT 13.7 H INR 1.2 APTT 26.2 Sodium 135 Potassium 4.5 Chloride 98 L Carbon Dioxide 23 Anion Gap 14.0 H BUN 31 H Creatinine 1.5 H Estimated GFR (MDRD) 33 L Glucose 150 H Calcium 9.8 Total Bilirubin 0.6 AST 30 ALT 22 Alkaline Phosphatase 88 Total Protein 7.5 Albumin 4.0 Globulin 3.5 Albumin/Globulin Ratio 1.1 Lipase 46 - Rads (name of study) [facility] Radiology: Prelim report reviewed, See rad report CTA head, neck Radiology: Prelim report reviewed, See rad report chest xray Radiology: Prelim report reviewed, See rad report PD MEDICAL DECISION MAKING - ED course Complexity details: reviewed results, re-evaluated patient, considered differential, d/w patient, d/w family - Consults Consults: Consulted (name) (Dr. Mena (neurology at [facility]). as patient is on Xarelto, she is not a tPA candidate (another consideraration is the unclear time of onset/last known normal). however, thrombectomy could be a potential option; he recommends CTA head and neck and will call back once he has reviewed these images. he subsequently contacted me, having reviewed these studies and then spoken to neurosurgery at [facility]. recommendation from neurology and neurosurgery is no such procedural intervention, admit to [facility]. d/w Dr. Adam, accepts to [facility] for admission) - Critical Care Time(min): 70 Time Includes: Direct patient care, Review records, Reassess patient, Document care, Coordinate care, Medical consult, Family consult for tx dec, See progress note Data interpretation: Labs, Pulse ox, CXR, See progress note Procedures included in critical care time: See progress note Procedures excluded from critical care time: See progress note - TPA CVA checklist Inclusion crititeria: positive: Sig neuro deficit, CT no bleed. negative: Onset know < 4.5 hr Absolute contraindications if 3-4.5 hr: positive: Coumadin (any INR) (xarelto), Age > 80 Departure - Departure Disposition: 66 [facility] DC/Xfer Clinical Impression: Cerebrovascular accident (CVA) Condition: Stable Discharge Date/Time: 03/26/19 00:31
--- NOTE | 2019-03-25 20:43 | CT Report ---
Reason: Neuro deficit, acute, stroke suspected Procedure Date: 03/25/2019 Accession Number: [id number] / [id number] Procedure: CT - Head W/O Stroke Protocol CPT Code: Addended Final Report FULL RESULT: EXAM: CT HEAD EXAM DATE: 03/25/2019 08:37 PM. CLINICAL HISTORY: 88-year-old woman with left sided deficit. Patient is on blood thinners. COMPARISON: None. TECHNIQUE: Multiaxial CT images were obtained from the foramen magnum to the vertex. Reformats: Sagittal and coronal. IV contrast: None. In accordance with CT protocol optimization, one or more of the following dose reduction techniques were utilized for this exam: automated exposure control, adjustment of mA and/or KV based on patient size, or use of iterative reconstructive technique. FINDINGS: Parenchyma: No hemorrhage. Morales-white differentiation is intact. ASPECTS: 10. The parenchyma demonstrate mild periventricular hypoattenuation, less than commonly seen in this age group. Ventricles and Extra-axial Spaces: Ventricles are symmetric and normal in size for age. No extra-axial hemorrhage or fluid collection. Orbits: Unremarkable except for bilateral lens replacement surgery. Sinuses: Paranasal sinuses and mastoid air cells are clear. 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 Extracranial Soft Tissues and Bones: Soft tissues are unremarkable. No fractures. IMPRESSION: 1. No acute intracranial abnormality. Specifically, no evidence of acute infarct, hemorrhage, or mass lesion. RADIA The critical test notification system was initiated by Dr. Kenji Harding at 08:42 PM on 03/25/2019. ADDENDUM: 03/25/19 20:45 The above critical test findings were discussed with Philipp Marks by Dr. Kenji Harding at 08:45 PM on 03/25/2019.
--- NOTE | 2019-03-25 20:56 | XRAY Report ---
Reason: chest pain Procedure Date: 03/25/2019 Accession Number: [id number] / [id number] Procedure: XR - Chest 1 View X-Ray CPT Code: 68885 Final Report FULL RESULT: EXAM: CHEST RADIOGRAPHY EXAM DATE: 03/25/2019 08:45 PM. CLINICAL HISTORY: Chest pain. COMPARISON: PORTABLE CHEST 04/13/2006 7:36 AM. TECHNIQUE: 1 view. FINDINGS: Lungs/Pleura: There is pulmonary vascular congestion without overt edema. No confluent lobar consolidation. No pleural effusion or pneumothorax. Mediastinum: Cardiomegaly. The aortic arch appears enlarged with ill-defined margins. Other: None. IMPRESSION: 1. Cardiomegaly with pulmonary vascular congestion however no overt edema or focal airspace disease. 2. Indistinct, prominent aortic arch, consider chest CT to exclude aneurysm or dissection. RADIA
[2019-03-25 21:19] LABS: BASOPHILS # (AUTO) 0.1 10^3/uL (0.0-0.1); BASOPHILS % (AUTO) 0.5 %; EOSINOPHILS % (AUTO) 0.1 %; HGB - HEMOGLOBIN 12.7 g/dL (12.0-16.0); LYMPHOCYTES # (AUTO) 0.9 10^3/uL (1.5-3.5); LYMPHOCYTES % (AUTO) 6.5 %; MEAN CORPUSCULAR HEMOGLOBIN 27.3 pg (27.0-31.0); MEAN CORPUSCULAR HGB CONC 32.2 g/dL (32.0-36.0); MEAN CORPUSCULAR VOLUME 84.7 fL (81.0-99.0); MEAN PLATELET VOLUME 9.6 fL (7.9-10.8); MONOCYTES # (AUTO) 0.7 10^3/uL (0.0-1.0); MONOCYTES % (AUTO) 5.2 %; NEUTROPHILS # (AUTO) 12.1 10^3/uL (1.5-6.6); NEUTROPHILS % (AUTO) 86.6 %; PLT - PLATELET COUNT 210 10^3/uL (130-450); RED BLOOD COUNT 4.65 10^6/uL (4.20-5.40)
[2019-03-25 21:24] LABS: INR 1.2 (0.8-1.2); PT - PROTHROMBIN TIME 13.7 secs (9.9-12.6)
[2019-03-25 21:32] LABS: PARTIAL THROMBOPLASTIN TIME 26.2 secs (24.9-33.3)
[2019-03-25 21:33] LABS: ALBUMIN/GLOBULIN RATIO 1.1 (1.0-2.2); BILIRUBIN,TOTAL 0.6 mg/dL (0.2-1.0); CALCIUM 9.8 mg/dL (8.5-10.3); CREATININE 1.5 mg/dL (0.4-1.0); TOTAL PROTEIN 7.5 g/dL (6.7-8.2)
[2019-03-25] MEDS ORDERED: IOVERSOL 320 100 ML VIAL IVP ONE ×2 (21:49→22:26)
[2019-03-25] MEDS ORDERED: ASPIRIN CHEW 81 MG TABLET PO STA (22:29)
[2019-03-25] MEDS ORDERED: ACETAMINOPHEN 325 MG TABLET PO PRN (22:48)
[2019-03-25] MEDS ORDERED: SODIUM CHLORIDE FLUSH 0.9% 10 ML SYRINGE IVP PRN (22:48)
[2019-03-25] MEDS ORDERED: ONDANSETRON 4 MG/2 ML VIAL IVP PRN (22:48)
[2019-03-25] MEDS ORDERED: ATORVASTATIN 40 MG TABLET PO SCH (22:54)
--- NOTE | 2019-03-25 23:00 | HISTORY & PHYSICAL EXAMINATION ---
Chief Complaint - Chief Complaint Chief Complaint: Fall History of Present Illness - Admitted From Admitted From:: Home - History Obtained From Records Reviewed: Yes History obtained from: Patient, ER Physician, Family - History of Present Illness HPI Comment/Other: This is a very pleasant 88-year-old female with a past medical history significant for chronic atrial fibrillation on Xarelto, hypertension who presents today after having a fall at home. The patient states that she fell somewhere between 4:56 PM this evening. She does not recall feeling weak on any particular side of her body or having slurred speech. She denies a loss of consciousness and head trauma. When her son-in-law went to check on her at 7 PM to give her the antibiotics she had been receiving for pneumonia, he noticed that she had a facial droop and slurred speech. He states that he last spoke to her at around 3 PM and she was in her usual state of health at that time. Patient reports no headache or blurry vision. She denies chest pain and dyspnea. She feels that her speech is not slurred and she did not have any focal weaknesses. She does not have a history of diabetes and no longer smokes although she has a remote history of smoking in her college years which she states was very minimal. She does take Xarelto and she last took it on March 25. In the emergency department, she was found to be afebrile with temperature of 36.5 C. She was tachycardic with a heart rate of 108. Her blood pressure is 03/11/1962. She was not tachypneic and saturating well on room air. Labs revealed a white count of 14 with a left shift. Her BUN and creatinine were elevated at [address] of the head was unremarkable. CTA of the head showed a small area of patchy density involving the right frontal lobe suspicious for early ischemic change. She is also found to have abrupt occlusion of a right MCA M2 branch compatible with an embolic occlusion. CT of the neck did not reveal any significant stenosis although did reveal a consolidation of the left upper lobe and suggestion of left hilar lymphadenopathy. The case was discussed with neurology at [facility] and the patient was deemed not a candidate for alteplase given she is on Xarelto. Neurology also discussed the case with neurosurgery given the concern for an embolic occlusion but it was felt that she would not be a candidate for intervention based off of where the occlusion is present. They recommended discontinuing her Xarelto for the time being and starting her on aspirin. Medicine was then consulted for admission. I did discuss goals of care with the patient and she would like to be a DNR. History - Past Medical History Cardiovascular: reports: Hypertension, Atrial fibrillation - Family & Social History Family History Comment/Other: She reports no family history to her knowledge. Living arrangement: At home Living Situation: Alone Social History Notes: She states she lives alone at home. She is independent with her ADLs. She does not drink alcohol. She did smoke in her college years but has not smoked since. - Substance History Use: Uses substance without health or social issues: NONE Meds/Allgy - Home Medications Home Medications: Ambulatory Orders Medication Instructions Recorded Confirmed Amlodipine Bes/Olmesartan Med 1 tab PO DAILY 03/25/19 03/25/19 [Amlodipine-Olmesartan 10-40 mg] Cefdinir 1 cap PO BID 03/25/19 03/25/19 Doxycycline Hyclate 1 tab PO BID 03/25/19 03/25/19 Metoprolol Tartrate 0.5 tab PO BID 03/25/19 03/25/19 Rivaroxaban [Xarelto] 1 tab PO DAILY 03/25/19 03/25/19 - Allergies Allergies/Adverse Reactions: Allergies Allergy/AdvReac Type Severity Reaction Status Date / Time No Known Drug Allergies Allergy Verified 03/25/19 20:13 Review of Systems - Constitutional Constitutional: denies: Fatigue, Fever, Chills, Weakness - Eyes Eyes: denies: Blurred vision - Cardiovascular Cariovascular: denies: Chest pain, Syncope, Exertional dyspnea, Decr. exercise tolerance - Respiratory Respiratory: reports: Cough. denies: Sputum production, SOB at rest, SOB with exertion - Gastrointestinal Gastrointestinal: denies: Abdominal pain, Nausea, Vomiting - Genitourinary Genitourinary: denies: Dysuria, Frequency - Musculoskeletal Musculoskeletal: denies: Muscle pain - Integumentary Integumentary: denies: Rash - Neurological Neurological: denies: General weakness, Focal weakness, Headache, Numbness, Slurred speech - All Other Systems All Other Systems: reports: Reviewed and negative Prior Level of Functionality: She lives alone and is independent with her ADLs. Exam - Vital Signs Reviewed Vital Signs: Yes Vital Signs: Vital Signs x48h Temp Pulse Resp BP Pulse Ox 03/25/19 22:15 101 H 20 135/80 H 94 03/25/19 21:00 103 H 18 142/90 H 99 03/25/19 20:13 36.5 C 108 H 16 124/64 98 - Physical Exam General Appearance: positive: No acute distress, Alert Eyes Bilateral: positive: Normal inspection ENT: positive: ENT inspection nml Neck: positive: Nml inspection Respiratory: positive: No respiratory distress. negative: Wheezes, Rales, Rho nchi Cardiovascular: positive: No murmur, Irregularly irregular, Tachycardia. negative: Systolic murmur, Diastolic murmur Abdomen: positive: Non-tender, No distention. negative: Tenderness Skin: positive: No rash, Warm, Dry Extremities: positive: Full ROM, No pedal edema Neurologic/Psychiatric: positive: Oriented x3, Sensation nml, Weakness (She has 5 out of 5 motor strength in her right upper extremity. Her motor strength is about 3 out of 5 in the left upper and lower extremities. The right lower extremity is also about 3 out of 5. She reports sensation is intact in all 4 extremities and her face. She is unable to lift her left eyebrow.), Facial droop (Left-sided facial droop.), Slurred/abnml speech, Other (Dysmetria noted in bilateral upper extremities. She does have left-sided neglect.). negative: Motor nml, Disoriented to person, Disoriented to place, Disoriented to time Conclusion/Plan - Problem List (1) Cerebrovascular accident (CVA) Conclusion/Plan: It appears she has a right MCA stroke secondary to her atrial fibrillation. Presents for left-sided facial droop as well as left-sided weakness in the left upper and lower extremities. He does have with her neglect and dysmetria. She also does have right-sided dysmetria of the upper extremity. Her risk factors include atrial fibrillation although she is on Xarelto. A CT of the head was unremarkable. CTA of the head showed a small area of patchy density involving the right frontal lobe suspicious for early ischemic change. She is also found to have abrupt occlusion of a right MCA M2 branch compatible with an embolic occlusion. She was given aspirin in the emergency department. At this time, we will continue aspirin 80 mg daily and start her on Lipitor. We will hold the Xarelto given the acute CVA. Will check lipid panel and A1c. Check an echocardiogram in the morning. We will also obtain a MRI of the brain. Neurochecks. PT and OT have been consulted as well as speech therapy. Social work consult for disposition she would likely benefit from inpatient rehab on discharge Qualifiers: CVA mechanism: embolism Precerebral and cerebral artery: middle cerebral artery Laterality of affected vessel: right Qualified Code(s): I63.411 - Cerebral infarction due to embolism of right middle cerebral artery (2) Chronic atrial fibrillation Conclusion/Plan: She is in atrial fibrillation with heart rates in the 100s. We will hold her Xarelto given the acute CVA. We will also hold her metoprolol for the time being to allow permissive hypertension. If her heart rate begins to increase, we will resume her home metoprolol. Monitor her on telemetry. Her EKG does show some nonspecific ST segment changes and so we will check a troponin. (3) Hypertension Conclusion/Plan: She is slightly hypertensive with systolic in the 130s. We will hold her home hypertensives to allow for permissive hypertension given the concern for CVA. (4) Pneumonia Conclusion/Plan: She has been receiving treatment for pneumonia on an outpatient basis with doxycycline and cefdinir. Her last day of antibiotics was tomorrow to complete 7 days of therapy. We will resume his antibiotics to finish the treatment course. On the CT a of the neck, there was concern for left-sided infiltrate and possible left hilar lymphadenopathy. She will need a CT of the chest which can be done later on this hospitalization or on an outpatient basis. This was discussed with the family including the concern for possible mass. (5) Chronic kidney disease, stage III (moderate) Conclusion/Plan: He has CKD stage III likely secondary to hypertension. Her baseline creatinine is around 1.1-1.2. Today it is slightly elevated at 1.5. We will place her on gentle IV hydration and hold her angiotensin receptor alem given the concern for CVA. Monitor her renal function and urine output. - Lab Results Lab results reviewed: Yes Shayne Bones: 03/25/19 21:09 03/25/19 21:09 - Diagnostic Imaging Results Diagnostic Imaging Results: positive: Final report reviewed - EKG Results EKG Interpreted Independently: Yes EKG Findings: Her EKG shows atrial fibrillation with a heart rate of 108. There are nonspecific ST segment changes in leads II, III and V5/V6. Core Measures - Anticipated LOS I expect patient to be DC'd or transferred within 96 hours.: Yes - Issues Hospital Issues and Management Plan: 88-year-old female with hypertension and atrial fibrillation admitted for [facility]. She is not a candidate for TPA. We will obtain an MRI, echocardiogram, lipid panel, A1c. Start her on aspirin Lipitor and hold Xarelto. PT/OT. - DVT/VTE - Prophylaxis VTE/DVT Device ordered at admit?: Yes VTE/DVT Prophylaxis med ordered at admit?: Yes
--- NOTE | 2019-03-25 23:33 | CT Report ---
Reason: left weakness Procedure Date: 03/25/2019 Accession Number: [id number] / [id number] Procedure: CT - ANGIO NECK W CPT Code: Final Report FULL RESULT: EXAM: CT ANGIOGRAM NECK EXAM DATE: 03/25/2019 10:11 PM. CLINICAL HISTORY: Left weakness. COMPARISON: CT HEAD W/O STROKE PROTOCOL 03/25/2019 8:28 PM. TECHNIQUE: Routine axial helical imaging was performed from the skull base through the aortic arch. Reconstructions: Routine multiplanar 3D MIP reconstructions. IV Contrast: OPTI 320 80ML. Evaluation of arterial stenosis is based on a NASCET method of measurement. In accordance with CT protocol optimization, one or more of the following dose reduction techniques were utilized for this exam: automated exposure control, adjustment of mA and/or KV based on patient size, or use of iterative reconstructive technique. FINDINGS: Aortic arch: There is scattered atherosclerotic calcification in the aortic arch. Visualized arch is otherwise unremarkable. Great vessels are patent without evidence of significant stenosis. Right Carotid: The common carotid, internal carotid, and external carotid arteries are patent. There is calcified plaque in the right carotid bulb and proximal ICA. This results in mild stenosis of approximately 20% in the proximal ICA by NASCET criteria. No evidence of dissection. Left Carotid: The common carotid, internal carotid, and external carotid arteries are patent. Calcified plaque in the left carotid bulb and proximal ICA results in mild stenosis of approximately 20% at the origin of the ICA. No evidence of dissection. Vertebrals: Both vertebral arteries are patent and approximately equal in size. No evidence of vertebral artery stenosis or dissection. Intracranial Circulation: CTA of intracranial circulation is reported separately. Other: There are a few small (less than 1 cm) nonspecific low-attenuation nodules in both thyroid lobes. These are of doubtful clinical significance in this age group. Tissues are otherwise unremarkable. A moderate left pleural effusion is partially visualized. There is patchy consolidation in the left upper lobe. The hilum is only partially visualized. However, there is suggestion of left hilar adenopathy. The findings are worrisome for malignancy. This could be better assessed with a dedicated CT chest. IMPRESSION: 1. Atherosclerotic plaque results in mild stenosis of approximately 20% in the proximal internal carotid arteries bilaterally. 2. Both vertebral arteries are patent without evidence of significant stenosis. No evidence of dissection. 3. A moderate left pleural effusion and patchy consolidation in the left upper lobe are partially visualized. In addition, there is suggestion of left hilar lymphadenopathy, although, this is only partially visualized. The findings are worrisome for malignancy. This could be better assessed with a dedicated CT chest. RADIA The call report notification system was initiated by Dr. Neymar De La Cruz at 11:23 PM on 03/25/2019. The above call report findings were discussed with Philipp Marks by Dr. Neymar De La Cruz at 11:32 PM on 03/25/2019.
--- NOTE | 2019-03-25 23:46 | CT Report ---
Reason: left weakness Procedure Date: 03/25/2019 Accession Number: [id number] / [id number] Procedure: CT - ANGIO HEAD W/WO CPT Code: Final Report FULL RESULT: EXAM: CT ANGIOGRAM HEAD. CT SCAN OF THE HEAD WITH CONTRAST. EXAM DATE: 03/25/2019 10:07 PM CLINICAL HISTORY: Left-sided weakness. COMPARISON: CT HEAD W/O STROKE PROTOCOL 03/25/2019 8:28 PM. TECHNIQUE: - CT Scan Head: Using a multidetector scanner, axial images were acquired from the foramen magnum to the skull vertex following contrast administration. - CT Angiogram: Using a multidetector scanner, high-resolution axial images were acquired from the skull base through vertex following rapid infusion of intravenous contrast. Reformats: Multiplanar MIP reformats were reconstructed. NASCET criteria used for stenosis measurement. IV Contrast: OPTIRAY 320-80 ML. In accordance with CT protocol optimization, one or more of the following dose reduction techniques were utilized for this exam: automated exposure control, adjustment of mA and/or KV based on patient size, or use of iterative reconstructive technique. FINDINGS: CT head with IV contrast: Precontrast imaging of the brain has been previously reported. Postcontrast imaging demonstrates no abnormal enhancement. However, there is suggestion of subtle hypodensity and loss of kaye-white matter differentiation in the right insula (image 17, series 7). There is also a small 2.2 cm region of subtle hypodensity more superiorly in the lateral right frontal lobe ( image 20, series 7). This is suspicious for early ischemic change. ASPECTS for the right MCA territory is 8. CT ANGIOGRAM HEAD: Anterior circulation: The petrous, cavernous, and supraclinoid segments of both internal carotid arteries are patent. There is mild atherosclerotic calcification in the carotid siphons bilaterally. No evidence of significant stenosis. The right MCA M1 segment and right bifurcation are patent. However, there is occlusion of a right MCA M2 branch within the sylvian fissure approximately 2 cm distal to the bifurcation. This is best appreciated on axial source image and 49; series 6, sagittal image 126, series 12; coronal image 64, series 10. There appears to be a right MCA trifurcation with the anterior and posterior branches of the trifurcation being patent. The left MCA and bilateral GILMAR distributions are patent and unremarkable. Posterior circulation: The distal vertebral, basilar, and posterior cerebral arteries are patent and appear normal. There are patent posterior communicating arteries bilaterally. The remainder of the posterior circulation is also unremarkable. No aneurysm or AVM is identified. Dural venous sinuses are patent. IMPRESSION: CT Head with IV contrast: 1. There is a small region of patchy hypodensity involving the right insula and more superiorly in the lateral right frontal lobe suspicious for early ischemic change. There is no hemorrhage or mass-effect. No abnormal enhancement. 2. ASPECTS in the right MCA territory is 8. CTA Head: 1. There is abrupt occlusion of a right MCA M2 branch approximately 2 cm distal to the bifurcation within the sylvian fissure compatible with an embolic occlusion. There appears to be a right MCA trifurcation with the anterior and posterior branches of the trifurcation being patent. 2. Intracranial circulation is otherwise unremarkable. RADIA The critical result notification system was initiated by Dr. Neymar De La Cruz at 11:22 PM on 03/25/2019. The above critical result findings were discussed with Philipp Marks by Dr. Neymar De La Cruz at 11:32 PM on 03/25/2019. Findings were also discussed with Dr. Henriquez on 03/25/2019 at 11:37 PM.
[2019-03-26] MEDS: LACTATED RINGERS 1,000 ML IV SCH ×2 (00:50→13:00)
[2019-03-26] MEDS: SODIUM CHLORIDE FLUSH 0.9% 10 ML SYRINGE IVP SCH ×3 (00:51→15:43)
[2019-03-26 05:40] LABS: BASOPHILS % (AUTO) 0.4 %; EOSINOPHILS # (AUTO) 0.1 10^3/uL (0.0-0.7); EOSINOPHILS % (AUTO) 1.3 %; LYMPHOCYTES # (AUTO) 1.4 10^3/uL (1.5-3.5); LYMPHOCYTES % (AUTO) 13.6 %; MEAN CORPUSCULAR HGB CONC 31.7 g/dL (32.0-36.0); MEAN CORPUSCULAR VOLUME 85.3 fL (81.0-99.0); MEAN PLATELET VOLUME 8.9 fL (7.9-10.8); MONOCYTES # (AUTO) 0.9 10^3/uL (0.0-1.0); MONOCYTES % (AUTO) 8.5 %; NEUTROPHILS # (AUTO) 7.8 10^3/uL (1.5-6.6); NEUTROPHILS % (AUTO) 75.4 %; PLT - PLATELET COUNT 171 10^3/uL (130-450); RED BLOOD COUNT 4.07 10^6/uL (4.20-5.40); WHITE BLOOD COUNT 10.4 x10^3/uL (4.8-10.8)
[2019-03-26 05:55] LABS: HB2 TOTAL 10.9 g/dL; HEMOGLOBIN A1C 0.47 g/dL; HEMOGLOBIN A1C % 6.1 % (4.6-6.2)
[2019-03-26 05:59] LABS: BUN - BLOOD UREA NITROGEN 25 mg/dL (6-20); CARBON DIOXIDE - CO2 23 mmol/L (21-32); CHLORIDE 102 mmol/L (101-111); CHOL/HDL RATIO 2.2 (<4.4); CHOLESTEROL 140 mg/dL; CREATININE 1.2 mg/dL (0.4-1.0); GFR - MDRD 42 (>89); GLUCOSE 102 mg/dL (70-100); HDL CHOLESTEROL 63 mg/dL; LDL CHOLESTEROL,CALCULATED 56 mg/dL; LDL/HDL RATIO 0.9 (<4.4); MAGNESIUM 2.3 mg/dL (1.7-2.8); PHOSPHORUS 3.9 mg/dL (2.5-4.6); SODIUM 136 mmol/L (135-145); VLDL CHOLESTEROL 21 mg/dL
--- NOTE | 2019-03-26 07:30 | PHARMACY PROGRESS NOTE ---
- Best Possible Medication History Admit Date and Time: 03/25/19 2248 Processed by: Pharmacy Medication History completed: Yes Patient Interview: Pt unable to participate Secondary Source(s): Physician records, Pharmacy records, Insurance records As the person ultimately responsible for medication therapy, providers are able to order a medication from an existing home medication list in [facility] via the "Reconcile Routine" prior to Confirmation of that medication by residential support worker. Such practice is discouraged except when the physician, in their clinical judgment, deems that a medical need exists for a medication without regard to previous use.
[2019-03-26 07:57] LABS: BILIRUBIN,URINE NEGATIVE (NEGATIVE); GLUCOSE, URINE (UA) NEGATIVE (NEGATIVE); KETONES,URINE (UA) NEGATIVE (NEGATIVE); LEUKOCYTE ESTERASE, URINE NEGATIVE (NEGATIVE); NITRITE,URINE NEGATIVE (NEGATIVE); OCCULT BLOOD,URINE TRACE-INTA (NEGATIVE); PH,URINE 7.5 PH (5.0-7.5); PROTEIN,URINE NEGATIVE (NEGATIVE); UROBILINOGEN,URINE 0.2 (NORMAL) E.U./dL (NORMAL)
[2019-03-26 07:58] LABS: CLARITY,URINE CLEAR (CLEAR)
[2019-03-26] MEDS ORDERED: ASPIRIN EC 81 MG TABLET PO SCH (09:00)
[2019-03-26] MEDS ORDERED: DOXYCYCLINE 100 MG TABLET PO SCH (09:00)
[2019-03-26] MEDS: HEPARIN 5,000 UNIT/ML VIAL SUBQ SCH ×2 (09:19→20:26)
--- NOTE | 2019-03-26 13:14 | MRI Report ---
Reason: Neuro deficit. Eval for stroke. Procedure Date: 03/26/2019 Accession Number: [id number] / [id number] Procedure: MRI - Brain W/O CPT Code: Addended Final Report FULL RESULT: EXAM: MRI BRAIN WITHOUT CONTRAST EXAM DATE: 03/26/2019 12:24 PM. CLINICAL HISTORY: 88-year-old with history of fall on 03/25/2019 presenting with left-sided deficit, facial droop, and slurred speech. Evaluate for intracranial pathology. COMPARISON: CT head 03/25/2019; CTA head and neck 03/25/2019. TECHNIQUE: Multiplanar, multisequence T1-weighted and fluid-sensitive MR sequences of the brain were performed. Sequences optimized for routine evaluation. Other: None. IV Contrast: None. FINDINGS: Brain Volume: Normal for age. Parenchyma/Dura: There are greater than 30 punctate to small acute infarcts seen involving the right cerebellum, left cerebellum, left occipital lobe, right occipital lobe, right temporal parietal region, lateral right insula, right temporal operculum, right frontal lobe, right frontal operculum, left pericallosal splenium of corpus callosum, bilateral basal ganglia, left frontal lobe, and bilateral parietal lobes. There is a conglomeration of infarct involving the right frontal and posterior frontal lobe measuring at least 21 x 33 mm (series 505, image 120). Infarcts are associated with T2/FLAIR signal hyperintensity. No evidence of hemorrhagic transformation. There is additional mild bilateral areas of T2/FLAIR signal hyperintensity seen. No areas of abnormal parenchymal hemosiderin deposition. Ventricles/Cisterns: No hydrocephalus. No abnormal extra-axial fluid collection or hemorrhage. Orbits: Changes of bilateral lens replacement. Sella Turcica: The pituitary gland, cavernous sinuses, suprasellar cistern and optic chiasm are unremarkable. IAC: Symmetric and unremarkable. Vasculature: Normal signal flow void is seen in the major arterial structures at the skull base. Sinuses: Minimal mucosal thickening of the paranasal sinuses. Mastoid air cells and middle ear cavities appear clear. Bones: No focal pathologic appearing marrow signal changes. Other: None. IMPRESSION: 1. There are greater than 30 punctate to small infarcts involving bilateral cerebellar, bilateral occipital lobes, right lateral insula, bilateral frontal lobes, bilateral parietal lobes, and left pericallosal splenium of corpus callosum. No evidence of hemorrhagic transformation. Infarcts in varying vascular territories suggest a thromboembolic phenomenon. 2. No acute intracranial hemorrhage, mass, hydrocephalus, or midline shift. 3. Additional white matter change is seen that are nonspecific but most likely represent sequela of chronic small vessel ischemic disease. RADIA The call report notification system was initiated by Dr. Jalil Cee at 01:13 PM on 03/26/2019. ADDENDUM: 03/26/19 13:24 The above call report findings were discussed with Dr Aurora Lewis by Dr. Jalil Cee at 01:24 PM on 03/26/2019.
--- NOTE | 2019-03-26 13:59 | ADVANCE CARE PLANNING NOTE ---
"Advance Care Planning - Planning Encounter Date: 03/26/19 Time: 13:58 Purpose: Establish goals of care, give devastating prognosis, explore next steps in planning. Parties in Attendance: The patient- Jose Amanda, son-Pacheco, son-in-law, Granddaughter, [id number] and myself-ANT Han Decisional Capacity of the Patient: The patient understands the enormity of her acute stroke and can see that since she will not be able to eat and drink, she will pass away in the next 1-4 weeks. She can give details about her other past medical history and is alert & orientated x4. She has only mild slurring of her speech. She is decisional today, with only mild baseline dementia. - Diagnosis for Encounter (1) Embolic stroke Qualifiers: Precerebral and cerebral artery: unspecified precerebral artery Qualified Code(s): I63.10 - Cerebral infarction due to embolism of unspecified precerebral artery Summary: A head MRI today shows: greater than 30 punctate to small infarcts involving bilateral cerebellar, bilateral occipital lobes, right lateral insula, bilateral frontal lobes, bilateral parietal lobes, and left pericallosal splenium of corpus callosum. No evidence of hemorrhagic transformation. Infarcts in varying vascular territories suggest a thromboembolic phenomenon. - Encounter Subjective/Patient's Story: The patient was informed of the severity of her strokes and states that she just wants to return home is she is to pass away in the near future. She tells her children, we better get things in order. Since having this stroke, her visual field has been damaged and asked if her family could hear what she and I were speaking about. She was very matter of fact and refused the idea of an artificial feeding tube in the event she needed nutrition. She confirmed her wishes of not wanting to live this way with being so debilitated. She states she has lived a long live and is very blessed to have so much family near her. She acknowledged that her son would be staying several days to a week with her at her home after this hospital stay for extra support. She states that she approves a Hospice consult after being told this horrible news today. Every family member and the patient were in tears and thankful to told of the test results. Objective/Medical Story: Jose Amanda is a very pleasant 88-year-old female with a past medical history significant for chronic atrial fibrillation on Xarelto, hypertension, CKD stage 3, falls, rib pain, osteoarthritis, anemia, fasting hyperglycemia, recurrent UTI, urinary incontinence, chronic venous insufficiency, & hyperlipidemia. The patient was brought in by EMS for left sided weakness and a fall. The patient states that she fell earlier in the evening. She does not recall feeling weak on any particular side of her body or having slurred speech at the time of the fall. She denies a loss of consciousness or head trauma. When her son-in-law went to check on her at 7 PM, he noticed that she had a facial droop and slurred speech. He states that he last spoke to her at around 3 PM and she was in her usual state of health at that time. On the admitting physicians initial exam, the patient denied headache, blurry vision, chest pain or dyspnea. She felt that her speech was not slurred and that she did not have any focal weaknesses. In the emergency department, she was found to be afebrile with temperature of 36.5 C. Vital signs were; heart rate 108 | B/P 124/64 | Temp 36.5 | RR 16 | 98% on room air. Labs showed an elevated WBC count of 14, BUN of 31, creatinine of 1.5. A head CT was unremarkable. CTA of the head showed a small area of patchy density involving the right frontal lobe suspicious for early ischemic change. She is also found to have abrupt occlusion of a right MCA M2 branch compatible with an embolic occlusion. CT of the neck did not reveal any significant stenosis although did reveal a consolidation of the left upper lobe and suggestion of left hilar lymphadenopathy. The case was discussed with neurology at [facility] and the patient was deemed not a candidate for alteplase given she is on Xarelto. Neurology also discussed the case with neurosurgery given the concern for an embolic occlusion but it was felt that she would not be a candidate for intervention based off of where the occlusion is present. They recommended discontinuing her Xarelto for the time being and starting her on aspirin. The patient confirmed her code status of DNR. Since getting the call from [facility] and speaking personally to the radiologist who explained severe damage (over 30) embolic kate, an advanced care plan talk was indicated. Goals of Care: Prevent discomfort by avoiding oral intake Anticipate medical complications that may occur post stroke such as aspiration pneumonia, UTI, PR, neurogenic cardiac damage, falls, depression or post stroke fatigue Provide support while arrangements are made for upcoming events Plan: Hospice consult Dr. Briggs to meet with the family and patient tomorrow AM Chest CT to evaluate for malignancy, aneurysm, dissection, or thrombus Stop therapies Await swallowing evaluation Await echocardiogram on Thursday Support the patient and family for their emotional needs Change most all medications to IV form Continue IV fluids Continue telemetry Treat symptoms Every 2 hour oral cares NPO for now Additional Discussion: Although the patient did fair during her first PT evaluation, clarification was made to the patient and her family regarding overall prognosis. Since she cannot swallow and there has been extensive damage in her brain from this embolic stroke, her overall condition will continue to deteriorate leading to . Code Status: Do Not Attempt Resuscitation Time spent on advance care plannin"
--- NOTE | 2019-03-26 14:25 | PROVIDER PROGRESS NOTE ---
Subjective - Prog Note Date Prog Note Date: 03/26/19 Prog Note Time: 14:22 - Subjective Pt reports feeling: Worse Subjective: Jose has no complaints and has been in her chair today. She has been told of all of her imaging studies and wishes to think things through. She denies chest pain, shortness of breath, bleeding, dysuria, or a new rash. Her family is at the bedside. Current Medications - Current Medications Current Medications: Active Medications: Acetaminophen (Tylenol) 650 mg PO Q4HR PRN Aspirin (Ecotrin) 81 mg PO DAILY YANNI Atorvastatin Calcium (Lipitor) 40 mg PO QPM YANNI Cefuroxime Axetil (Ceftin) 500 mg PO BID YANNI Doxycycline Hyclate (Vibramycin) 100 mg PO BID YANNI Heparin Sodium (Porcine) 5,000 unit SUBQ BID YANNI Lactated Ringer's (Lr) 1,000 mls @ 83.333 mls/hr IV .Q12H YANNI Ondansetron HCl (Zofran Inj) 4 mg IVP Q6HR PRN HOME meds: Amlodipine Bes/Olmesartan Med [Amlodipine-Olmesartan 10-40 mg] 1 tab PO DAILY 03/25/19 Cefdinir 300 mg PO BID 03/25/19 Doxycycline Hyclate 100 mg PO BID 03/25/19 Metoprolol Tartrate 12.5 mg PO BID 03/25/19 Rivaroxaban [Xarelto] 15 mg PO DAILY 03/25/19 Objective - Vital Signs/Intake & Output Reviewed Vital Signs: Yes Vital Signs: Vital Signs x48h Temp Pulse Pulse Resp BP Pulse Ox Pulse Ox 03/26/19 12:54 36.8 C 116 H 18 149/78 H 98 03/26/19 10:45 90 95 03/26/19 08:22 36.8 C 94 20 144/74 H 97 Intake & Output: Intake & Output 03/23/19 03/24/19 03/25/19 03/26/19 23:59 23:59 23:59 23:59 Intake Total 1000 Output Total 550 Balance 450 - Objective General Appearance: positive: Alert, Moderate distress Eyes: OU Conjunctivae pale ENT: positive: Pharyngeal erythema, Dry mucous membranes Neck: positive: Trachea midline, Stiff neck Respiratory: positive: Chest non-tender, No respiratory distress, Rhonchi Cardiovascular: positive: No gallop, Irregularly irregular, Tachycardia, Systolic murmur, Decreased pulse(s) Peripheral Pulses: 1+ Radial (R), 1+ Radial (L) Abdomen: positive: Non-tender, Nml bowel sounds, Other (rounded, soft) Back: positive: Nml inspection Skin: positive: No rash, Warm, Dry, Pallor Extremities: positive: Non-tender, Pedal edema, Joint swelling Neurologic/Psychiatric: positive: Oriented x3, Weakness, Sensory loss, Facial droop (left facial droop), Depressed mood/affect Reflexes: Bicep (R): 3+, Bicep (L): 2+ - Lab Results Fish Bones: 03/26/19 05:30 03/26/19 05:30 Other Labs: Lab Results x24hrs 03/26/19 03/26/19 03/26/19 Range/Units 07:40 05:30 05:30 WBC 10.4 (4.8-10.8) x10^3/uL RBC 4.07 L (4.20-5.40) 10^6/uL Hgb 11.0 L (12.0-16.0) g/dL Hct 34.7 L (37.0-47.0) % MCV 85.3 (81.0-99.0) fL MCH 27.0 (27.0-31.0) pg MCHC 31.7 L (32.0-36.0) g/dL RDW 15.0 (12.0-15.0) % Plt Count 171 (130-450) 10^3/uL MPV 8.9 (7.9-10.8) fL Neut # (Auto) 7.8 H (1.5-6.6) 10^3/uL Lymph # (Auto) 1.4 L (1.5-3.5) 10^3/uL [place] # (Auto) 0.9 (0.0-1.0) 10^3/uL Eos # (Auto) 0.1 (0.0-0.7) 10^3/uL Baso # (Auto) 0.0 (0.0-0.1) 10^3/uL Absolute Nucleated RBC 0.00 x10^3/uL Nucleated RBC % 0.0 /100WBC PT (9.9-12.6) secs INR (0.8-1.2) APTT (24.9-33.3) secs Sodium (135-145) mmol/L Potassium (3.5-5.0) mmol/L Chloride (101-111) mmol/L Carbon Dioxide (21-32) mmol/L Anion Gap (6-13) BUN (6-20) mg/dL Creatinine (0.4-1.0) mg/dL Estimated GFR (MDRD) (>89) Glucose (70-100) mg/dL Glycated Hemoglobin (4.6-6.2) % Estim Average Glucose (70-100) Calcium (8.5-10.3) mg/dL Phosphorus (2.5-4.6) mg/dL Magnesium (1.7-2.8) mg/dL Total Bilirubin (0.2-1.0) mg/dL AST (10-42) IU/L ALT (10-60) IU/L Alkaline Phosphatase (42-121) IU/L Troponin I High Sens 188.9 H* (2.3-14.8) ng/L Total Protein (6.7-8.2) g/dL Albumin (3.2-5.5) g/dL Globulin (2.1-4.2) g/dL Albumin/Globulin Ratio (1.0-2.2) Triglycerides ( - 149) mg/dL Cholesterol ( - 199) mg/dL LDL Cholesterol, Calc ( - 129) mg/dL VLDL Cholesterol mg/dL HDL Cholesterol (60 - ) mg/dL LDL/HDL Ratio (<4.4) Cholesterol/HDL Ratio (<4.4) Lipase (22-51) U/L Urine Color YELLOW Urine Clarity CLEAR (CLEAR) Urine pH 7.5 (5.0-7.5) PH Ur Specific [place] 1.010 (1.002-1.030) Urine Protein NEGATIVE (NEGATIVE) mg/dL Urine Glucose (UA) NEGATIVE (NEGATIVE) mg/dL Urine Ketones NEGATIVE (NEGATIVE) mg/dL Urine Occult Blood TRACE-INTA (NEGATIVE) Urine Nitrite NEGATIVE (NEGATIVE) Urine Bilirubin NEGATIVE (NEGATIVE) Urine Urobilinogen 0.2 (NORMAL) (NORMAL) E.U./dL Ur Leukocyte Esterase NEGATIVE (NEGATIVE) Ur Microscopic Review NOT INDICATED Urine Culture Comments NOT INDICATED 02/08/20 02/08/20 02/08/20 Range/Units 05:30 05:30 00:05 WBC (4.8-10.8) x10^3/uL RBC (4.20-5.40) 10^6/uL Hgb (12.0-16.0) g/dL Hct (37.0-47.0) % MCV (81.0-99.0) fL MCH (27.0-31.0) pg MCHC (32.0-36.0) g/dL RDW (12.0-15.0) % Plt Count (130-450) 10^3/uL MPV (7.9-10.8) fL Neut # (Auto) (1.5-6.6) 10^3/uL Lymph # (Auto) (1.5-3.5) 10^3/uL [place] # (Auto) (0.0-1.0) 10^3/uL Eos # (Auto) (0.0-0.7) 10^3/uL Baso # (Auto) (0.0-0.1) 10^3/uL Absolute Nucleated RBC x10^3/uL Nucleated RBC % /100WBC PT (9.9-12.6) secs INR (0.8-1.2) APTT (24.9-33.3) secs Sodium 136 (135-145) mmol/L Potassium 3.9 (3.5-5.0) mmol/L Chloride 102 (101-111) mmol/L Carbon Dioxide 23 (21-32) mmol/L Anion Gap 11.0 (6-13) BUN 25 H (6-20) mg/dL Creatinine 1.2 H (0.4-1.0) mg/dL Estimated GFR (MDRD) 42 L (>89) Glucose 102 H (70-100) mg/dL Glycated Hemoglobin 6.1 (4.6-6.2) % Estim Average Glucose 128 H (70-100) Calcium 9.0 (8.5-10.3) mg/dL Phosphorus 3.9 (2.5-4.6) mg/dL Magnesium 2.3 (1.7-2.8) mg/dL Total Bilirubin (0.2-1.0) mg/dL AST (10-42) IU/L ALT (10-60) IU/L Alkaline Phosphatase (42-121) IU/L Troponin I High Sens 168.6 H* (2.3-14.8) ng/L Total Protein (6.7-8.2) g/dL Albumin (3.2-5.5) g/dL Globulin (2.1-4.2) g/dL Albumin/Globulin Ratio (1.0-2.2) Triglycerides 104 ( - 149) mg/dL Cholesterol 140 ( - 199) mg/dL LDL Cholesterol, Calc 56 ( - 129) mg/dL VLDL Cholesterol 21 mg/dL HDL Cholesterol 63 (60 - ) mg/dL LDL/HDL Ratio 0.9 (<4.4) Cholesterol/HDL Ratio 2.2 (<4.4) Lipase (22-51) U/L Urine Color Urine Clarity (CLEAR) Urine pH (5.0-7.5) PH Ur Specific [place] (1.002-1.030) Urine Protein (NEGATIVE) mg/dL Urine Glucose (UA) (NEGATIVE) mg/dL Urine Ketones (NEGATIVE) mg/dL Urine Occult Blood (NEGATIVE) Urine Nitrite (NEGATIVE) Urine Bilirubin (NEGATIVE) Urine Urobilinogen (NORMAL) E.U./dL Ur Leukocyte Esterase (NEGATIVE) Ur Microscopic Review Urine Culture Comments 03/25/19 03/25/19 03/25/19 Range/Units 21:09 21:09 21:09 WBC 14.0 H (4.8-10.8) x10^3/uL RBC 4.65 (4.20-5.40) 10^6/uL Hgb 12.7 (12.0-16.0) g/dL Hct 39.4 (37.0-47.0) % MCV 84.7 (81.0-99.0) fL MCH 27.3 (27.0-31.0) pg MCHC 32.2 (32.0-36.0) g/dL RDW 15.0 (12.0-15.0) % Plt Count 210 (130-450) 10^3/uL MPV 9.6 (7.9-10.8) fL Neut # (Auto) 12.1 H (1.5-6.6) 10^3/uL Lymph # (Auto) 0.9 L (1.5-3.5) 10^3/uL [place] # (Auto) 0.7 (0.0-1.0) 10^3/uL Eos # (Auto) 0.0 (0.0-0.7) 10^3/uL Baso # (Auto) 0.1 (0.0-0.1) 10^3/uL Absolute Nucleated RBC 0.00 x10^3/uL Nucleated RBC % 0.0 /100WBC PT 13.7 H (9.9-12.6) secs INR 1.2 (0.8-1.2) APTT 26.2 (24.9-33.3) secs Sodium 135 (135-145) mmol/L Potassium 4.5 (3.5-5.0) mmol/L Chloride 98 L (101-111) mmol/L Carbon Dioxide 23 (21-32) mmol/L Anion Gap 14.0 H (6-13) BUN 31 H (6-20) mg/dL Creatinine 1.5 H (0.4-1.0) mg/dL Estimated GFR (MDRD) 33 L (>89) Glucose 150 H (70-100) mg/dL Glycated Hemoglobin (4.6-6.2) % Estim Average Glucose (70-100) Calcium 9.8 (8.5-10.3) mg/dL Phosphorus (2.5-4.6) mg/dL Magnesium (1.7-2.8) mg/dL Total Bilirubin 0.6 (0.2-1.0) mg/dL AST 30 (10-42) IU/L ALT 22 (10-60) IU/L Alkaline Phosphatase 88 (42-121) IU/L Troponin I High Sens (2.3-14.8) ng/L Total Protein 7.5 (6.7-8.2) g/dL Albumin 4.0 (3.2-5.5) g/dL Globulin 3.5 (2.1-4.2) g/dL Albumin/Globulin Ratio 1.1 (1.0-2.2) Triglycerides ( - 149) mg/dL Cholesterol ( - 199) mg/dL LDL Cholesterol, Calc ( - 129) mg/dL VLDL Cholesterol mg/dL HDL Cholesterol (60 - ) mg/dL LDL/HDL Ratio (<4.4) Cholesterol/HDL Ratio (<4.4) Lipase 46 (22-51) U/L Urine Color Urine Clarity (CLEAR) Urine pH (5.0-7.5) PH Ur Specific [place] (1.002-1.030) Urine Protein (NEGATIVE) mg/dL Urine Glucose (UA) (NEGATIVE) mg/dL Urine Ketones (NEGATIVE) mg/dL Urine Occult Blood (NEGATIVE) Urine Nitrite (NEGATIVE) Urine Bilirubin (NEGATIVE) Urine Urobilinogen (NORMAL) E.U./dL Ur Leukocyte Esterase (NEGATIVE) Ur Microscopic Review Urine Culture Comments - Diagnostic Imaging Diagnostic Imaging Results: positive: Final report reviewed Diagnostic Imaging Comments: EXAM: MRI BRAIN WITHOUT CONTRAST 03/26/2019 12:24 PM IMPRESSION: 1. There are greater than 30 punctate to small infarcts involving bilateral cerebellar, bilateral occipital lobes, right lateral insula, bilateral frontal lobes, bilateral parietal lobes, and left pericallosal splenium of c orpus callosum. No evidence of hemorrhagic transformation. Infarcts in varying vascular territories suggest a thromboembolic phenomenon. 2. No acute intracranial hemorrhage, mass, hydrocephalus, or midline shift. 3. Additional white matter change is seen that are nonspecific but most likely represent sequela of chronic small vessel ischemic disease. EXAM: CT CHEST 03/26/2019 02:19 PM IMPRESSION: 1. Masslike consolidation in the left upper lobe, concerning for neoplasia. Peripheral interlobular septal thickening may reflect lymphangitic disease. 2. Scattered small bilateral pulmonary nodules, concerning for metastasis. 3. Moderate left and trace right pleural effusions. 4. Moderate intermediate density pericardial effusion. 5. Mediastinal and probably hilar lymphadenopathy, concerning for metastatic disease. 6. Indeterminate hypodensity near the liver dome. 7. Mixed lucent-sclerotic bone lesion abutting the T11 inferior endplate, possibly Schmorl's node. Metastasis not excluded. 8. Other findings as noted above. 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, and can bear weight, left facial droop, turns head only to the right, leaning to the right, profound visual loss -Sensation is intact to her left side, but still with numbness to her left face -Likely a consequence of her several embolic strokes Dysphagia -A consequence of her stroke -Also recent pneumonia, diagnosed outpatient -Profound difficulty with swallowing -Coarse lung sounds, congested -NPO, await official swallow evaluation Multiple pulmonary nodules -Chest CT without contrast was completed today showing masslike consolidation in the left upper lobe, scattered small bilateral pulmonary nodules, mediastinal and hilar lymphadenopathy, concerning for metastatic disease -Recently treated for pneumonia -History of basal cell carcinoma, no other cancers noted -No oxygen needs at this time -Likely a contributing factor in forming a thrombus leading to these embolic strokes -Most likely no further testing due to the patients severe debility from her stroke Chronic atrial fibrillation -Patient remains in atrial fibrillation on telemetry -Heart rates uncontrolled at 80-120s -Home meds include; metoprolol 12.5 mg BID -Starting on IV metoprolol Q6H -Xarelto on hold today due to acute stroke -Continue telemetry, continue vital signs Hypertension -Prescribed metoprolol, amlodipine/olmesartan at home -All meds on hold since acute stroke -B/P 134/69, heart rates 100-120s -Started scheduled IV metoprolol Q6H due to ongoing tachycardia with HOLD par ameters for SBP greater than 120 Pneumonia -First diagnosed outpatient on 03/19/2019 -Prescribed Doxycycline & Ceftin -Now changed to IV since not tolerating PO due to acute dysphagia -Plan to continue IV treatment for the next 24 hours -Imaging including a CT of the neck, was concern for left-sided infiltrate and possible left hilar lymphadenopathy -A chest CT shows likely bilateral pulmonary nodules, mediastinal & hilar lymphadenopathy, no mention of acute pneumonia -NPO, continue IV fluids, supportive respiratory cares Chronic kidney disease, stage III (moderate) -Progressive, longstanding according to a records review -Possibly due to untreated HTN earlier in life -Takes an ARB and Xarelto at home (both nephrotoxic) -On 03/19/2019, started on doxycycline and Ceftin outpatient (also potential nephrotoxic effects) -Baseline serum creatinine ~ 1.1 -Now elevated at 1.2, improved from 1.5 on admission since getting IV fluids -Continue routine labs, unless comfort care orders are placed Elevated troponin -High sensitivity troponin on labs were elevated at 168.6, then 188.9 -Patient denies chest pain -A moderate pericardial effusion is noted on chest CT -Patient is sitting in the chair today -Routine labs, re-check in the AM to ensure a trending down
--- NOTE | 2019-03-26 14:47 | CT Report ---
Reason: aneurysm/dissection, elevated troponin Procedure Date: 03/26/2019 Accession Number: [id number] / [id number] Procedure: CT - CHEST WO CPT Code: Final Report FULL RESULT: EXAM: CT CHEST EXAM DATE: 03/26/2019 02:19 PM. CLINICAL HISTORY: Aneurysm/dissection, elevated troponin. COMPARISONS: ABDOMEN 05/18/2013 8:19 AM. TECHNIQUE: Routine helical CT imaging was performed through the chest. IV contrast: None. Reconstructions: Coronal and sagittal. In accordance with CT protocol optimization, one or more of the following dose reduction techniques were utilized for this exam: automated exposure control, adjustment of mA and/or KV based on patient size, or use of iterative reconstructive technique. FINDINGS: Lungs/Pleura: There is masslike consolidation of the left upper lobe extending from the hilum measuring up to approximately 43 x 31 mm (6/30). There appears to be partial occlusion of associated segmental airway. There is patchy interlobular septal thickening in the more peripheral left upper lobe concerning for lymphangitic disease. There are scattered bilateral pulmonary nodules measuring up to 8 mm at the left lower lobe (6/66), and 7 mm at the right lower lobe (6/55). There is a moderate left and trace right pleural effusion. There is mild hazy groundglass opacity bilaterally may be hypoventilatory and/or reflect mild interstitial edema. Mediastinum: There is mediastinal lymphadenopathy measuring up to 22 x 30 mm at the right lower paratracheal station (3/38). There is likely at least mild bilateral hilar lymphadenopathy. There is a moderate intermediate density pericardial effusion. Heart size is borderline. Moderate coronary artery calcifications. Bones: Mixed lucent-sclerotic bone lesion abutting the T11 inferior endplate, may reflect Schmorl's node. Metastasis not excluded. Visualized Abdomen: Indeterminate 11 mm hypodensity near the liver dome (/78). Other: None. IMPRESSION: 1. Masslike consolidation in the left upper lobe, concerning for neoplasia. Peripheral interlobular septal thickening may reflect lymphangitic disease. 2. Scattered small bilateral pulmonary nodules, concerning for metastasis. 3. Moderate left and trace right pleural effusions. 4. Moderate intermediate density pericardial effusion. 5. Mediastinal and probably hilar lymphadenopathy, concerning for metastatic disease. 6. Indeterminate hypodensity near the liver dome. 7. Mixed lucent-sclerotic bone lesion abutting the T11 inferior endplate, possibly Schmorl's node. Metastasis not excluded. 8. Other findings as noted above. RADIA
[2019-03-26] MEDS ORDERED: METOPROLOL 5 MG/5 ML VIAL IVP SCH (15:00)
[2019-03-26] MEDS ORDERED: DOXYCYCLINE INJ 100 MG in SODIUM CHLORIDE 0.9% MINIBAG 100 ML IV SCH (21:00)
[2019-03-26] MEDS: METOPROLOL 5 MG/5 ML VIAL IVP SCH (21:55)
[2019-03-27] MEDS: SODIUM CHLORIDE FLUSH 0.9% 10 ML SYRINGE IVP SCH ×3 (00:11→16:10)
[2019-03-27] MEDS: LACTATED RINGERS 1,000 ML IV SCH ×2 (03:05→13:52)
[2019-03-27] MEDS: METOPROLOL 5 MG/5 ML VIAL IVP SCH ×2 (04:39→10:16)
[2019-03-27 05:40] LABS: BASOPHILS # (AUTO) 0.1 10^3/uL (0.0-0.1); BASOPHILS % (AUTO) 0.6 %; EOSINOPHILS # (AUTO) 0.2 10^3/uL (0.0-0.7); EOSINOPHILS % (AUTO) 1.8 %; HGB - HEMOGLOBIN 11.7 g/dL (12.0-16.0); LYMPHOCYTES # (AUTO) 1.8 10^3/uL (1.5-3.5); LYMPHOCYTES % (AUTO) 16.6 %; MEAN CORPUSCULAR HEMOGLOBIN 26.4 pg (27.0-31.0); MEAN CORPUSCULAR HGB CONC 31.5 g/dL (32.0-36.0); MEAN CORPUSCULAR VOLUME 83.8 fL (81.0-99.0); MONOCYTES # (AUTO) 0.8 10^3/uL (0.0-1.0); MONOCYTES % (AUTO) 6.9 %; NEUTROPHILS # (AUTO) 7.9 10^3/uL (1.5-6.6); NEUTROPHILS % (AUTO) 73.4 %; PLT - PLATELET COUNT 180 10^3/uL (130-450); RED BLOOD COUNT 4.44 10^6/uL (4.20-5.40); RED CELL DISTRIBUTION WIDTH 14.8 % (12.0-15.0); WHITE BLOOD COUNT 10.8 x10^3/uL (4.8-10.8)
[2019-03-27 05:50] LABS: CREATININE 0.9 mg/dL (0.4-1.0)
--- NOTE | 2019-03-27 07:52 | PROVIDER PROGRESS NOTE ---
Subjective - Prog Note Date Prog Note Date: 03/27/19 Prog Note Time: 07:52 - Subjective Pt reports feeling: No change Subjective: Gavino has no complaints. She is found many times drooling from her mouth since her loss of sensation from her stroke. She and her family had a chance to meet with Dr. Briggs, Hospice and asked for their mother (grand-mother) to be placed at [facility]. They have taken a tour and are pleased with this choice. She denies shortness of breath, but has very coarse lung sounds on exam. She has remained afebrile. Dr. Briggs suggested to stop the IV antibiotics as this recent illness was most likely a manifestation of her suspected lung cancer. Current Medications - Current Medications Current Medications: Active Medications: Aspirin 300 mg NC DAILY YANNI Lactated Ringer's (Lr) 1,000 mls @ 83.333 mls/hr IV .Q12H YANNI Metoprolol Tartrate (Lopressor Inj) 5 mg IVP Q6H, PRN Ondansetron HCl (Zofran Inj) 4 mg IVP Q6HR PRN HOME meds: Amlodipine Bes/Olmesartan 1 tab PO DAILY 03/25/19 Cefdinir 300 mg PO BID 03/25/19 Doxycycline Hyclate 100 mg PO BID 03/25/19 Metoprolol Tartrate 12.5 mg PO BID 03/25/19 Rivaroxaban [Xarelto] 15 mg PO DAILY 03/25/19 Objective - Vital Signs/Intake & Output Reviewed Vital Signs: Yes Vital Signs: Vital Signs x48h Temp Pulse Resp BP BP Pulse Ox 03/27/19 04:39 123/81 H 03/27/19 04:10 36.4 C L 102 H 18 123/81 H 93 03/27/19 00:00 36.8 C 94 17 105/70 97 Intake & Output: Intake & Output 03/24/19 03/25/19 03/26/19 03/27/19 23:59 23:59 23:59 23:59 Intake Total 1672.211 427.789 Output Total 1200 700 Balance 472.211 -272.211 - Objective General Appearance: positive: Alert, Moderate distress Eyes Bilateral: positive: Other (abnormal excessive skin covering both eye lashes-bilaterally Left eye is drooping, squinting) Eyes: OU Conjunctivae pale, OU Other (No vision from left eye is apparent based on exam) ENT: positive: Dry mucous membranes, Other (drooling from mouth since left facial numbness- patient is unaware) Neck: positive: No JVD, Stiff neck Respiratory: positive: Chest non-tender, No respiratory distress, Rhonchi Cardiovascular: positive: No gallop, Irregularly irregular, Systolic murmur, Decreased pulse(s) Peripheral Pulses: 1+ Radial (R), 1+ Radial (L) Abdomen: positive: Non-tender, Nml bowel sounds, Other (rounded, obese, soft) Back: positive: Nml inspection Skin: positive: No rash, Warm, Dry, Diaphoresis (sweating noted on back side), Pallor Extremities: positive: Non-tender, Pedal edema (mild/trace), Joint swelling (chronic) Neurologic/Psychiatric: positive: Disoriented to time, Weakness, Sensory loss (loss of sensation to LUE, LLE-worse than yesterday, loss of sensation to whole left face-also worse than yesterday), Facial droop, Slurred/abnml speech, Depressed mood/affect, Other (left sided weakness, leans to the right, severe visual impairment) Reflexes: Bicep (R): 2+, Bicep (L): 1+ - Lab Results Fish Bones: 03/27/19 05:25 03/27/19 05:25 Other Labs: Lab Results x24hrs 03/27/19 03/27/19 03/27/19 Range/Units 05:25 05:25 05:25 WBC 10.8 (4.8-10.8) x10^3/uL RBC 4.44 (4.20-5.40) 10^6/uL Hgb 11.7 L (12.0-16.0) g/dL Hct 37.2 (37.0-47.0) % MCV 83.8 (81.0-99.0) fL MCH 26.4 L (27.0-31.0) pg MCHC 31.5 L (32.0-36.0) g/dL RDW 14.8 (12.0-15.0) % Plt Count 180 (130-450) 10^3/uL MPV 9.0 (7.9-10.8) fL Neut # (Auto) 7.9 H (1.5-6.6) 10^3/uL Lymph # (Auto) 1.8 (1.5-3.5) 10^3/uL Camp # (Auto) 0.8 (0.0-1.0) 10^3/uL Eos # (Auto) 0.2 (0.0-0.7) 10^3/uL Baso # (Auto) 0.1 (0.0-0.1) 10^3/uL Absolute Nucleated RBC 0.00 x10^3/uL Nucleated RBC % 0.0 /100WBC Sodium 137 (135-145) mmol/L Potassium 4.0 (3.5-5.0) mmol/L Chloride 105 (101-111) mmol/L Carbon Dioxide 23 (21-32) mmol/L Anion Gap 9.0 (6-13) BUN 17 (6-20) mg/dL Creatinine 0.9 (0.4-1.0) mg/dL Estimated GFR (MDRD) 59 L (>89) Glucose 93 (70-100) mg/dL Calcium 9.0 (8.5-10.3) mg/dL Troponin I High Sens 197.0 H* (2.3-14.8) ng/L Urine Color Urine Clarity (CLEAR) Urine pH (5.0-7.5) PH Ur Specific [place] (1.002-1.030) Urine Protein (NEGATIVE) mg/dL Urine Glucose (UA) (NEGATIVE) mg/dL Urine Ketones (NEGATIVE) mg/dL Urine Occult Blood (NEGATIVE) Urine Nitrite (NEGATIVE) Urine Bilirubin (NEGATIVE) Urine Urobilinogen (NORMAL) E.U./dL Ur Leukocyte Esterase (NEGATIVE) Ur Microscopic Review Urine Culture Comments 03/26/19 Range/Units 07:40 WBC (4.8-10.8) x10^3/uL RBC (4.20-5.40) 10^6/uL Hgb (12.0-16.0) g/dL Hct (37.0-47.0) % MCV (81.0-99.0) fL MCH (27.0-31.0) pg MCHC (32.0-36.0) g/dL RDW (12.0-15.0) % Plt Count (130-450) 10^3/uL MPV (7.9-10.8) fL Neut # (Auto) (1.5-6.6) 10^3/uL Lymph # (Auto) (1.5-3.5) 10^3/uL Camp # (Auto) (0.0-1.0) 10^3/uL Eos # (Auto) (0.0-0.7) 10^3/uL Baso # (Auto) (0.0-0.1) 10^3/uL Absolute Nucleated RBC x10^3/uL Nucleated RBC % /100WBC Sodium (135-145) mmol/L Potassium (3.5-5.0) mmol/L Chloride (101-111) mmol/L Carbon Dioxide (21-32) mmol/L Anion Gap (6-13) BUN (6-20) mg/dL Creatinine (0.4-1.0) mg/dL Estimated GFR (MDRD) (>89) Glucose (70-100) mg/dL Calcium (8.5-10.3) mg/dL Troponin I High Sens (2.3-14.8) ng/L Urine Color YELLOW Urine Clarity CLEAR (CLEAR) Urine pH 7.5 (5.0-7.5) PH Ur Specific [place] 1.010 (1.002-1.030) Urine Protein NEGATIVE (NEGATIVE) mg/dL Urine Glucose (UA) NEGATIVE (NEGATIVE) mg/dL Urine Ketones NEGATIVE (NEGATIVE) mg/dL Urine Occult Blood TRACE-INTA (NEGATIVE) Urine Nitrite NEGATIVE (NEGATIVE) Urine Bilirubin NEGATIVE (NEGATIVE) Urine Urobilinogen 0.2 (NORMAL) (NORMAL) E.U./dL Ur Leukocyte Esterase NEGATIVE (NEGATIVE) Ur Microscopic Review NOT INDICATED Urine Culture Comments NOT INDICATED ABX Reporting Has patient been on IV antibiotics over the past 48 hours?: Yes Assessment/Plan - Problem List (1) Embolic stroke Impression: -Head MRI shows devastating (over 30) acute embolic strokes involving nearly every brain hemisphere -Unknown source, no echocardiogram today -Residuals remain with left sided weakness, left facial droop, slurred speech, loss of sight, and dysphagia -Drooling due to loss of sensation to her left face -Echocardiogram no longer indicated -Cancelled PT/OT -Await swallow evaluation on Thursday Acute left sided weakness -First occurred prior to presenting to our ED -Appears to have LEFT gross motor movement, + 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, and can bear weight, left facial droop, turns head only to the right, leaning to the right, -Ongoing profound visual loss (bilateral, no visual field to left eye) -Left 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 today is not as strong as yesterday, left leg weakness upon exam -Leans backwards when getting to the chair with nursing -Sensation is intact to her left side, but still with numbness to her left face resulting in drooling from her mouth -A consequence of her several embolic strokes Dysphagia -A consequence of her stroke -Also recent pneumonia, diagnosed outpatient -Profound difficulty with swallowing -Coarse lung sounds, congested -Resumed a soft diet, per patient and family request for Palliative reasons Multiple pulmonary nodules -Chest CT without contrast was completed today showing masslike consolidation in the left upper lobe, scattered small bilateral pulmonary nodules, mediastinal and hilar lymphadenopathy, concerning for metastatic disease -Recently treated for pneumonia -History of basal cell carcinoma, no other cancers noted -No oxygen needs at this time -Likely a contributing factor in forming a thrombus leading to these embolic strokes -Most likely no further testing due to the patients severe debility from her stroke -Respiratory cares if needed End of life cares -Since meeting with Dr. Briggs today, the family agrees to proceed with Hospice -[facility] is their first choice of facilities to provide Hospice -Final plans are still being worked out, as she may also return home with 24 hour care -Patient was up in her chair for most of today -Changed the patient to a soft diet to allow for Palliative feeding -Patient is a DNR -No further labs, IV fluids remain per family request, PT/OT cancelled Chronic atrial fibrillation -Patient was last known to be in atrial fibrillation -Changed scheduled IV metoprolol Q6H to PRN -Xarelto on hold due to the patient's poor swallow since her acute stroke -Continue vital signs Q8H Hypertension -Prescribed metoprolol, amlodipine/olmesartan at home -All meds on hold since acute stroke -B/P 112/59, heart rates 70-80s -Changed scheduled IV metoprolol Q6H to PRN for patient comfort Chronic kidney disease, stage III (moderate) -Progressive, longstanding according to a records review -Possibly due to untreated HTN earlier in life -Takes an ARB and Xarelto at home (both nephrotoxic) -On 03/19/2019, started on doxycycline and Ceftin outpatient (also potential nephrotoxic effects) -Baseline serum creatinine ~ 1.1 -Now normalized to 0.9 -Continues on gentle IV fluids -Continue comfort focused cares, no further labs Elevated troponin -High sensitivity troponin on labs were elevated at 168.6, then 188.9, then 197 -Patient denies chest pain -A moderate pericardial effusion is noted on chest CT -No treatment or further testing -Patient is sitting in the chair -Discontinued telemetry per patient request Constipation -Last BM on 03/25/2019 -No complaints from the patient of abdominal pain or fullness -Very good bowel sounds in all quadrants -May try a suppository today if no results as she continues to be NPO since her severe stroke Pneumonia -First diagnosed outpatient on 03/19/2019 -Prescribed Doxycycline & Ceftin outpatient, continued for 1 day while here, now stopped -Imaging including a CT of the neck, was concern for left-sided infiltrate and possible left hilar lymphadenopathy -A chest CT shows likely bilateral pulmonary nodules, mediastinal & hilar lymphadenopathy, no mention of acute pneumonia -Continue IV fluids, supportive respiratory cares, stop IV antibiotics -Allow Palliative feeding per patient request and since planning to proceed with Hospice
[2019-03-27] MEDS: ASPIRIN 300 MG SUPP PR SCH (08:39)
[2019-03-27] MEDS ORDERED: cefTRIAXone 1 GM in SODIUM CHLORIDE 0.9% MINIBAG 100 ML IV SCH (09:00)
[2019-03-27] MEDS: HEPARIN 5,000 UNIT/ML VIAL SUBQ SCH (10:13)
[2019-03-27] MEDS ORDERED: METOPROLOL 5 MG/5 ML VIAL IVP PRN (13:25)
[2019-03-28] MEDS: LACTATED RINGERS 1,000 ML IV SCH ×2 (01:41→13:56)
[2019-03-28] MEDS: SODIUM CHLORIDE FLUSH 0.9% 10 ML SYRINGE IVP SCH ×3 (01:43→18:05)
--- NOTE | 2019-03-28 09:01 | Discharge Plan ---
Discharge Plan for SNF / [facility] - Discharge Plan And Transition Orders Problem Reviewed?: Yes Condition: Good Allergies and Adverse Reactions: Allergies Allergy/AdvReac Type Severity Reaction Status Date / Time No Known Drug Allergies Allergy Verified 03/25/19 20:13 Health Concerns: Embolic strokes Left sided weakness Dysphagia (impaired swallowing) Multiple pulmonary nodules End of life cares Chronic atrial fibrillation Hypertension Chronic kidney disease Plan of Treatment: Hospice care per Dr. Briggs Care Goals: Provide comfort focused cares Treat symptoms Provide family support Assessment: Jose was admitted to the hospital after having acute left sided weakness and was found to have over 30 embolic lesions involving bilateral cerebellar, bilateral occipital lobes, right lateral insula, bilateral frontal lobes, bilateral parietal lobes, and left pericallosal splenium of corpus callosum. A chest CT was completed showing Masslike consolidation in the left upper lobe, concerning for neoplasia. Peripheral interlobular septal thickening may reflect lymphangitic disease. Scattered small bilateral pulmonary nodules, concerning for metastasis. Moderate left and trace right pleural effusions. Moderate intermediate density pericardial effusion. Mediastinal and probably hilar lymphadenopathy, concerning for metastatic disease. Indeterminate hypodensity near the liver dome. Mixed lucent-sclerotic bone lesion abutting the T11 inferior endplate, possibly Schmorl's node. Metastasis not excluded. The family was informed of her very poor prognosis since she had been clearly aspiration on her oral secretions since arriving in the ED, and remained NPO. Advanced care planning was discussed, and Dr. Briggs graciously paid a visit to the hospital on Thursday to offer Hospice services. The patient is medically stable and will be transported to [facility] under the care of Dr. Briggs today. - SNF / [facility] Transition Orders Admit to (Facility): [facility] Under the care of (Name): Dr. Briggs Medication Orders: PLEASE REFER TO THE DISCHARGE MEDICATION LIST. - Diet Type: Geriatric Texture: Dysphagia mech (Palliative feeding only) Liquids: [place] thick
--- NOTE | 2019-03-28 10:08 | PROVIDER PROGRESS NOTE ---
Subjective - Prog Note Date Prog Note Date: 03/28/19 Prog Note Time: 10:07 - Subjective Pt reports feeling: Worse Subjective: The family was informed of her very poor prognosis since she had been clearly aspirating on her oral secretions since arriving in the ED, and remained NPO. Today the patient underwent a bedside swallow study for safety of Palliative feeding. Advanced care planning was discussed, and Dr. Briggs graciously paid a visit to the hospital on Thursday to offer Hospice services. The patients family has been very supportive and the plan is for Hospice equipment to be delivered in the AM, and return home with family under the care of Dr. Briggs. Today the patient states she has no complaints, except for that it has been difficult for her to cough. Her voice is garbled, she has become very weak on her left side, family is surrounding her chair today. Current Medications - Current Medications Current Medications: Active Medications: Aspirin 300 mg DC DAILY YANNI Lactated Ringer's (Lr) 1,000 mls @ 83.333 mls/hr IV .Q12H YANNI Metoprolol Tartrate (Lopressor Inj) 5 mg IVP Q6H PRN Ondansetron HCl (Zofran Inj) 4 mg IVP Q6HR PRN HOME meds: Amlodipine Bes/Olmesartan 1 tab PO DAILY 03/25/19 Cefdinir 300 mg PO BID 03/25/19 Doxycycline Hyclate 100 mg PO BID 03/25/19 Metoprolol Tartrate 12.5 mg PO BID 03/25/19 Rivaroxaban [Xarelto] 15 mg PO DAILY 03/25/19 Objective - Vital Signs/Intake & Output Reviewed Vital Signs: Yes Intake & Output: Intake & Output 03/25/19 03/26/19 03/27/19 03/28/19 23:59 23:59 23:59 23:59 Intake Total 7267.740 0587.364 1436.109 Output Total 1200 1350 600 Balance 472.211 316.364 836.109 - Objective General Appearance: positive: No acute distress, Alert Eyes: OU Conjunctivae pale, OU Lid inflammation (chronic, extended eye lids, left eye squinting, loss of sight) ENT: positive: Pharyngeal erythema, Dry mucous membranes Neck: positive: Stiff neck Respiratory: positive: Chest non-tender, No respiratory distress, Rhonchi Cardiovascular: positive: Regular rate & rhythm, No gallop, Tachycardia, Systolic murmur, Decreased pulse(s) Peripheral Pulses: 1+ Radial (R), 1+ Radial (L) Abdomen: positive: Non-tender, Nml bowel sounds, Other (rounded, soft) Back: positive: Nml inspection Skin: positive: No rash, Warm, Dry Extremities: positive: Non-tender, Pedal edema, Joint swelling (mild pitting edema right greater than left) Neurologic/Psychiatric: positive: Disoriented to time, Weakness, Sensory loss, Facial droop (left), Slurred/abnml speech (garbled speech, many times difficult to understand), Depressed mood/affect, Other (left sided weakness, loss of left 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 clinical 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 consultant, poor left shoulder shrug, tongue deviates to the right, drooling from mouth, loss of sensation to left face) Reflexes: Bicep (R): 3+, Bicep (L): 1+ - Lab Results Fish Bones: 03/27/19 05:25 03/27/19 05:25 Other Labs: Lab Results x24hrs 03/27/19 03/26/19 03/26/19 Range/Units 00:12 17:33 11:32 POC Whole Bld Glucose 98 103 H 113 H (70 - 100) mg/dL 03/26/19 Range/Units 01:00 POC Whole Bld Glucose 119 H (70 - 100) mg/dL ABX Reporting Has patient been on IV antibiotics over the past 48 hours?: No Assessment/Plan - Problem List (1) Embolic stroke Impression: -Head MRI shows devastating (over 30) acute embolic strokes involving nearly every brain hemisphere -Unknown source, no echocardiogram today -Residuals remain with left sided weakness, left facial droop, slurred speech, loss of sight, and dysphagia -Drooling due to loss of sensation to her left face -Echocardiogram no longer indicated -Cancelled PT/OT -Await swallow evaluation today per family request to ensure safe swallowing Acute left sided weakness -First occurred prior to presenting to our ED -Appears to have LEFT gross motor movement, + hand clinical sales consultant, and can bear weight, left facial droop, turns head only to the right, leaning to the right, -Ongoing profound visual loss (bilateral, no visual field to left eye) -Left hand clinical sales consultant today is not as strong as yesterday, left leg weakness upon exam -Leans backwards when getting to the chair with nursing -Sensation is intact to her left side, but still with numbness to her left face resulting in drooling from her mouth -A consequence of her several embolic strokes -Continue with comfort cares Dysphagia -A consequence of her stroke -Also recent pneumonia, diagnosed outpatient -Profound difficulty with swallowing -Coarse lung sounds, congested -Resumed a soft diet, per patient and family request for Palliative reasons -Swallow study preliminary evaluation would be for pureed foods, final is pending Multiple pulmonary nodules -Chest CT without contrast was completed today showing masslike consolidation in the left upper lobe, scattered small bilateral pulmonary nodules, mediastinal and hilar lymphadenopathy, concerning for metastatic disease -Recently treated for pneumonia -History of basal cell carcinoma, no other cancers noted -No oxygen needs at this time -Likely a contributing factor in forming a thrombus leading to these embolic strokes -Most likely no further testing due to the patients severe debility from her stroke -Respiratory cares if needed -Patient states that she is having difficulty with coughing End of life cares -Since meeting with Dr. Briggs today, the family agrees to proceed with Hospice at home, discharge tomorrow (03/28/2019) -Patient has gotten up to the chair daily -Changed the patient to a soft diet to allow for Palliative feeding -Patient is a DNR -No further labs, IV fluids remain per family request, PT/OT cancelled Chronic atrial fibrillation -Patient was last known to be in atrial fibrillation -Changed scheduled IV metoprolol Q6H to PRN -Xarelto on hold due to the patient's poor swallow since her acute stroke -Vital signs, PRN Hypertension -Prescribed metoprolol, amlodipine/olmesartan at home -Continue comfort cares Chronic kidney disease, stage III (moderate) -Progressive, longstanding according to a records review -Possibly due to untreated HTN earlier in life -Takes an ARB and Xarelto at home (both nephrotoxic) -On 03/19/2019, started on doxycycline and Ceftin outpatient (also potential nephrotoxic effects) -Baseline serum creatinine ~ 1.1 -Now normalized to 0.9 -Continues on gentle IV fluids -Continue comfort focused cares, no further labs Elevated troponin -High sensitivity troponin on labs were elevated at 168.6, then 188.9, then 197 -Patient denies chest pain -A moderate pericardial effusion is noted on chest CT -No treatment or further testing -Patient is sitting in the chair -Discontinued telemetry per patient request Constipation -Last BM on 03/25/2019 -No complaints from the patient of abdominal pain or fullness -Very good bowel sounds in all quadrants -May try a suppository if no results as she continues to be NPO since her severe stroke Pneumonia -First diagnosed outpatient on 03/19/2019 -Prescribed Doxycycline & Ceftin outpatient, continued for 1 day while here, now stopped -Imaging including a CT of the neck, was concern for left-sided infiltrate and possible left hilar lymphadenopathy -A chest CT shows likely bilateral pulmonary nodules, mediastinal & hilar lymphadenopathy, no mention of acute pneumonia -Continue IV fluids, supportive respiratory cares, stop IV antibiotics -Allow Palliative feeding per patient request and since planning to proceed with Hospice
[2019-03-28] MEDS: ASPIRIN 300 MG SUPP PR SCH (11:55)
[2019-03-29 01:11] VITALS: BP 149/76
[2019-03-29] MEDS: LACTATED RINGERS 1,000 ML IV SCH (01:20)
[2019-03-29] MEDS: SODIUM CHLORIDE FLUSH 0.9% 10 ML SYRINGE IVP SCH ×2 (01:22→09:15)
[2019-03-29] MEDS: ASPIRIN 300 MG SUPP PR SCH (07:38)
--- NOTE | 2019-03-29 07:58 | Discharge Plan ---
Discharge Plan Problem Reviewed?: Yes Disposition: 50 Hospice/Home DC/Xfer Condition: Good Diet: Regular (pureed, thickened liquids) Activity Restrictions: No Restrictions Instruction Topics: Dysphagia Tx, Dysphagia, Dysphagia Diet Manage Liquids Health Concerns: Embolic strokes Left sided weakness Dysphagia (impaired swallowing) Multiple pulmonary nodules End of life cares Chronic atrial fibrillation Hypertension Chronic kidney disease Plan of Treatment: Hospice care per Dr. Briggs Care Goals: Provide comfort focused cares Treat symptoms Provide family support Assessment: Jose was admitted to the hospital after having acute left sided weakness and was found to have over 30 embolic lesions involving bilateral cerebellar, bilateral occipital lobes, right lateral insula, bilateral frontal lobes, bilateral parietal lobes, and left pericallosal splenium of corpus callosum. A chest CT was completed showing Masslike consolidation in the left upper lobe, concerning for neoplasia. Peripheral interlobular septal thickening may reflect lymphangitic disease. Scattered small bilateral pulmonary nodules, concerning for metastasis. Moderate left and trace right pleural effusions. Moderate intermediate density pericardial effusion. Mediastinal and probably hilar lymphadenopathy, concerning for metastatic disease. Indeterminate hypodensity near the liver dome. Mixed lucent-sclerotic bone lesion abutting the T11 inferior endplate, possibly Schmorl's node. Metastasis not excluded. The family was informed of her very poor prognosis since she had been clearly aspiration on her oral secretions since arriving in the ED, and remained NPO. A swallow study was obtained by our speech therapist who recommended a pureed diet with thickened liquids to provide palliative feedings. Advanced care planning was discussed, and Dr. Briggs graciously paid a visit to the hospital on Thursday to offer Hospice services. The patient is medically stable and will be transported home via BLS under the care of Dr. Briggs today. Follow-Up Care: Hospice No Smoking: If you smoke, Please STOP! Call for help. Follow-up with: Shilpa Morales PA-C [Primary Care Provider] -
--- NOTE | 2019-03-29 08:02 | DISCHARGE SUMMARY ---
"Discharge Summary Admit Date: 03/25/19 Discharge Date: 03/29/19 Discharging Provider: ANT Han Primary Care Provider: Dr. Briggs Code Status: Do Not Attempt Resuscitation Condition at Discharge: Good Discharge Disposition: 50 Hospice/Home DC/Xfer - DIAGNOSES Admission Diagnoses: Cerebrovascular accident (CVA) due to embolism of right middle cerebral artery Chronic atrial fibrillation Hypertension Pneumonia CKD (chronic kidney disease), stage III Discharge Diagnoses with Status of Each Condition: Embolic stroke-New on this admission, no further treatment since going home with Hospice Acute left-sided weakness-Present on admission, Left arm and left leg had progressive weakness which became worse each day, profound left facial droop, facial numbness, drooling was noted, stable, no further treatment Dysphagia-Present on admit, progressively worse, swallow study was completed to ensure safety with Palliative feedings, stable Multiple pulmonary nodules-New finding on admit, found on chest CT, no hemoptysi s, recently treated for bronchitis, pneumonia, no antibiotics to continue, lesions also on spine and in the liver, stable End of life care-Ongoing, no morphine or lorazepam was prescribed since the pa tient was not requiring comfort medications at the time of discharge. Hospice admission at home later today, stable Chronic atrial fibrillation-Previously on Xarelto, suspect a culprit into the embolic strokes on admission, no further treatment, stable Hypertension-Chronic, no further treatment, no side effects of new headaches, stable CKD (chronic kidney disease), stage III-No further treatment, stable Elevated troponin-Improved, no further treatment, stable Pneumonia-No further treatment, stable, no oxygen needed Constipation-Resolved, no issues - HPI History of Present Illness: HPI per Dr. Fontanezf: This is a very pleasant 88-year-old female with a past medical history significant for chronic atrial fibrillation on Xarelto, hypertension who presents today after having a fall at home. The patient states that she fell somewhere between 4:56 PM this evening. She does not recall feeling weak on any particular side of her body or having slurred speech. She denies a loss of consciousness and head trauma. When her son-in-law went to check on her at 7 PM to give her the antibiotics she had been receiving for pneumonia, he noticed that she had a facial droop and slurred speech. He states that he last spoke to her at around 3 PM and she was in her usual state of health at that time. Patient reports no headache or blurry vision. She denies chest pain and dyspnea. She feels that her speech is not slurred and she did not have any focal weaknesses. She does not have a history of diabetes and no longer smokes although she has a remote history of smoking in her college years which she states was very minimal. She does take Xarelto and she last took it on March 25. In the emergency department, she was found to be afebrile with temperature of 36.5 C. She was tachycardic with a heart rate of 108. Her blood pressure is 03/11/1962. She was not tachypneic and saturating well on room air. Labs revealed a white count of 14 with a left shift. Her BUN and creatinine were elevated at [address] of the head was unremarkable. CTA of the head showed a small area of patchy density involving the right frontal lobe suspicious for early ischemic change. She is also found to have abrupt occlusion of a right MCA M2 branch compatible with an embolic occlusion. CT of the neck did not reveal any significant stenosis although did reveal a consolidation of the left upper lobe and suggestion of left hilar l ymphadenopathy. The case was discussed with neurology at [facility] and the patient was deemed not a candidate for alteplase given she is on Xarelto. Neurology also discussed the case with neurosurgery given the concern for an embolic occlusion but it was felt that she would not be a candidate for in tervention based off of where the occlusion is present. They recommended discontinuing her Xarelto for the time being and starting her on aspirin. Medicine was then consulted for admission. I did discuss goals of care with the patient and she would like to be a DNR. - CONSULTS | PROCEDURES Consultations: Hospice, Dr. Briggs - HOSPITAL COURSE Hospital Course: Jose was admitted to the hospital after having acute left sided weakness and was found to have over 30 embolic lesions involving bilateral cerebellar, bilateral occipital lobes, right lateral insula, bilateral frontal lobes, bilateral parietal lobes, and left pericallosal splenium of corpus callosum. A chest CT was completed showing Masslike consolidation in the left upper lobe, concerning for neoplasia. Peripheral interlobular septal thickening may reflect lymphangitic disease. Scattered small bilateral pulmonary nodules, concerning for metastasis. Moderate left and trace right pleural effusions. Moderate intermediate density pericardial effusion. Mediastinal and probably hilar lymphadenopathy, concerning for metastatic disease. Indeterminate hypodensity near the liver dome. Mixed lucent-sclerotic bone lesion abutting the T11 inf erior endplate, possibly Schmorl's node. Metastasis not excluded. The family was informed of her very poor prognosis since she had been clearly aspiration on her oral secretions since arriving in the ED, and remained NPO. A swallow study was obtained by our speech therapist who recommended a pureed diet with thickened liquids to provide palliative feedings. Advanced care planning was discussed, an d Dr. Briggs graciously paid a visit to the hospital on Thursday to offer Hospice services. The patient is medically stable and will be transported home via BLS under the care of Dr. Briggs today. - ALLERGIES Allergies/Adverse Reactions: Allergies Allergy/AdvReac Type Severity Reaction Status Date / Time No Known Drug Allergies Allergy Verified 03/25/19 20:13 - PHYSICAL EXAM AT DISCHARGE General Appearance: positive: Alert, Moderate distress Eyes Bilateral: positive: No scleral icterus ENT: positive: Pharyngeal erythema, Dry mucous membranes Respiratory: positive: Chest non-tender, Rhonchi, Other (intermittent respi ratory distress) Cardiovascular: positive: Regular rate & rhythm, No gallop, Systolic murmur Peripheral Pulses: positive: 1+ Abdomen: positive: Non-tender, Nml bowel sounds, Other (rounded, soft) Back: positive: Nml inspection Skin: positive: No rash, Warm, Dry, Other (bronze toned skin) Extremities: positive: Non-tender, Pedal edema, Joint swelling Neurologic/Psychiatric: positive: Disoriented to time, Weakness, Sensory loss, Facial droop (left), Slurred/abnml speech, Depressed mood/affect Reflexes: Bicep (R): 3+, Bicep (L): 1+ - LABS Result Diagrams: 03/27/19 05:25 03/27/19 05:25 - DIAGNOSTIC IMAGING Diagnostic Imaging Results: Final report reviewed Diagnostic Imaging Results Comments: EXAM: MRI BRAIN WITHOUT CONTRAST 03/26/2019 12:24 PM IMPRESSION: 1. There are greater than 30 punctate to small infarcts involving bilateral cerebellar, bilateral occipital lobes, right lateral insula, bilateral frontal lobes, bilateral parietal lobes, and left pericallosal splenium of corpus callosum. No evidence of hemorrhagic transformation. Infarcts in varying vascular territories suggest a thromboembolic phenomenon. 2. No acute intracranial hemorrhage, mass, hydrocephalus, or midline shift. 3. Additional white matter change is seen that are nonspecific but most likely represent sequela of chronic small vessel ischemic disease. EXAM: CT CHEST 03/26/2019 02:19 PM IMPRESSION: 1. Masslike consolidation in the left upper lobe, concerning for neoplasia. Peripheral interlobular septal thickening may reflect lymphangitic disease. 2. Scattered small bilateral pulmonary nodules, concerning for metastasis. 3. Moderate left and trace right pleural effusions. 4. Moderate intermediate density pericardial effusion. 5. Mediastinal and probably hilar lymphadenopathy, concerning for metastatic disease. 6. Indeterminate hypodensity near the liver dome. 7. Mixed lucent-sclerotic bone lesion abutting the T11 inferior endplate, possibly Schmorl's node. Metastasis not excluded. 8. Other findings as noted above. - FOLLOW UP Follow Up: As per Hospice, no further follow up recommended since transitioning to comfort cares - TIME SPENT Time Spent in Discharge (Minutes): 60"
== END 2019-03-29 13:55 | disposition home or self-care (01) | DRG 64 ==
LOC: EDUNIT# → ED 20:10 → MS2 22:48
PROVIDERS: ADMIT Internal Medicine; ATTEND Nurse Practitioner
DX: I63.9 Cerebral infarction, unspecified (principal); I63.411 Cerebral infarction due to embolism of right middle cerebral artery; R47.1 Dysarthria and anarthria; J18.9 Pneumonia, unspecified organism; H02.402 Unspecified ptosis of left eyelid; H53.47 Heteronymous bilateral field defects; R27.0 Ataxia, unspecified; R29.711 NIHSS score 11; I10 Essential (primary) hypertension; I48.91 Unspecified atrial fibrillation; G81.94 Hemiplegia, unspecified affecting left nondominant side; I48.20 Chronic atrial fibrillation, unspecified; C34.12 Malignant neoplasm of upper lobe, left bronchus or lung; C78.01 Secondary malignant neoplasm of right lung; C78.02 Secondary malignant neoplasm of left lung; C77.8 Secondary and unspecified malignant neoplasm of lymph nodes of multiple regions; C79.51 Secondary malignant neoplasm of bone; I31.3 Pericardial effusion (noninflammatory); I12.9 Hypertensive chronic kidney disease with stage 1 through stage 4 chronic kidney disease, or unspecified chronic kidney disease; N18.3 Chronic kidney disease, stage 3 (moderate); R29.810 Facial weakness; R13.10 Dysphagia, unspecified; K59.00 Constipation, unspecified; R47.81 Slurred speech; M51.44 Schmorl's nodes, thoracic region; R27.8 Other lack of coordination; H53.40 Unspecified visual field defects; H54.3 Unqualified visual loss, both eyes; E78.5 Hyperlipidemia, unspecified; F03.90 Unspecified dementia, unspecified severity, without behavioral disturbance, psychotic disturbance, mood disturbance, and anxiety; Z51.5 Encounter for palliative care; Z66 Do not resuscitate; Z79.01 Long term (current) use of anticoagulants; Z91.81 History of falling; Z87.891 Personal history of nicotine dependence; Z79.899 Other long term (current) drug therapy; Z87.440 Personal history of urinary (tract) infections; Z85.828 Personal history of other malignant neoplasm of skin
CPT/HCPCS: 36415; 70496; 70498; 70551; 71045; 71250; 80048; 80053; 80061; 81003; 83036; 83690; 83735; 84100; 84484; 85025; 85610; 85730; 92610; 93005; 97163; 97530; 99285; 99291; A9270; J7120; Q9967; 70450; 81001; 83721; 87086

== ENCOUNTER 2019-03-29 13:48 | Outpatient (CLI) | payer MEDICARE, OTHER | END 2019-03-29 13:49 | disposition home or self-care (01) | LOC: EMS 13:48 | PROVIDERS: ATTEND Surgery | DX: I63.9 Cerebral infarction, unspecified (principal) | CPT/HCPCS: A0425; A0428 ==